=== PATIENT | female | born 1970 | race African-American/Black ===

== ENCOUNTER 2016-06-24 07:12 | Emergency (ER) | payer BC ==
[~2016-06-24] VITALS: Ht 162.6 cm; Wt 90.7 kg
[2016-06-24 07:23] VITALS: BP 156/92
--- NOTE | 2016-06-24 07:41 | PHYS DOC ---
Past Medical History Past Medical History: Hypertension Past Surgical History: Hysterectomy Alcohol Use: Occasionally Drug Use: None Adult General Chief Complaint Chief Complaint: HEADACHE HPI HPI Patient is a 45 year old female with history of hypertension who presents today with a 5 out of 10 sharp throbbing headache with chills cough that began 2 days ago, she states she's also had intermittent and neck pain going into her back. She states she believes she slept wrong because the pain is very musculoskeletal and yolk has when she sleeps in certain positions. Patient denies this being the worst headache in her life. Patient denies any nausea vomiting. Patient states she thought she had a crooked neck 2 days ago when the pain began. Patient denies any light sensitivity. Review of Systems Review of Systems Constitutional: chills [] Eyes: Denies change in visual acuity, redness, or eye pain [] HENT:sore throat [] Respiratory:cough Cardiovascular: No additional information not addressed in HPI [] GI: Denies abdominal pain, nausea, vomiting, bloody stools or diarrhea [] : Denies dysuria or hematuria [] Musculoskeletal: Denies back pain or joint pain [] Integument: Denies rash or skin lesions [] Neurologic: Denies headache, focal weakness or sensory changes [] Endocrine: Denies polyuria or polydipsia [] Current Medications Current Medications Current Medications Medications (Trade) Dose Ordered Sig/Raman Start Time Stop Time Status Last Admin Dose Admin Acetaminophen (Tylenol) 1,000 mg 1X ONCE 06/24/16 07:45 06/24/16 07:46 DC 06/24/16 07:59 1,000 MG Azithromycin (Zithromax) 1,000 mg 1X ONCE 06/24/16 09:45 06/24/16 09:46 Ceftriaxone Sodium (Rocephin Im) 250 mg 1X ONCE 06/24/16 09:45 06/24/16 09:46 Metronidazole (Flagyl) 2,000 mg 1X ONCE 06/24/16 09:45 06/24/16 09:46 Sodium Chloride (Iv Sodium Chloride 0.9% 1000ml Bag) 1,000 ml @ 1,000 mls/hr 1X ONCE 06/24/16 07:45 06/24/16 08:44 DC 06/24/16 08:00 1,000 MLS/HR Allergies Allergies Allergies Coded Allergies Type Severity Reaction Last Updated Verified No Known Drug Allergies 06/24/16 No Physical Exam Physical Exam Constitutional: Well developed, well nourished, no acute distress, non-toxic appearance. [] HENT: Normocephalic, atraumatic, bilateral external ears normal, oropharynx moist, no oral exudates, nose normal. [] Eyes: PERRLA, EOMI, conjunctiva normal, no discharge. [] Neck: Normal range of motion, no tenderness, supple, no stridor. Negative Kernig sign, negative Brudzinski sign [] Cardiovascular:Heart rate regular rhythm, no murmur [] Lungs & Thorax: Bilateral breath sounds clear to auscultation [] Abdomen: Bowel sounds normal, soft, no tenderness, no masses, no pulsatile masses. [] Skin: Warm, dry, no erythema, no rash. [] Back: No tenderness, no CVA tenderness. [] Extremities: No tenderness, no cyanosis, no clubbing, ROM intact, no edema. [] Neurologic: Alert and oriented X 3, normal motor function, normal sensory function, no focal deficits noted. [] Psychologic: Affect normal, judgement normal, mood normal. [] Current Patient Data Vital Signs Vital Signs Date Time Temp Pulse Resp B/P Pulse Ox O2 Delivery O2 Flow Rate FiO2 06/24/16 07:23 101.1 100 20 156/92 96 Room Air 101.1 Lab Values Laboratory Tests Test 06/24/16 07:40 06/24/16 07:50 Influenza Type A Antigen Negative (NEGATIVE) Influenza Type B Antigen Negative (NEGATIVE) White Blood Count 5.0x10^3/uL (4.0-11.0) Red Blood Count 4.91x10^6/uL (3.50-5.40) Hemoglobin 12.7g/dL (12.0-15.5) Hematocrit 39.2% (36.0-47.0) Mean Corpuscular Volume 80fL (79-100) Mean Corpuscular Hemoglobin 26pg (25-35) Mean Corpuscular Hemoglobin Concent 33g/dL (31-37) Red Cell Distribution Width 14.6% (11.5-14.5) H Platelet Count 262x10^3/uL (140-400) Neutrophils (%) (Auto) 53% (31-73) Lymphocytes (%) (Auto) 32% (24-48) Monocytes (%) (Auto) 12% (0-9) H Eosinophils (%) (Auto) 2% (0-3) Basophils (%) (Auto) 1% (0-3) Neutrophils # (Auto) 2.7x10^3uL (1.8-7.7) Lymphocytes # (Auto) 1.6x10^3/uL (1.0-4.8) Monocytes # (Auto) 0.6x10^3/uL (0.0-1.1) Eosinophils # (Auto) 0.1x10^3/uL (0.0-0.7) Basophils # (Auto) 0.0x10^3/uL (0.0-0.2) Urine Collection Type Unknown Urine Color Yellow Urine Clarity Hazy Urine pH 6.0 Urine Specific Black 1.025 Urine Protein 30mg/dL (NEG-TRACE) Urine Glucose (UA) Negativemg/dL (NEG) Urine Ketones (Stick) Negativemg/dL (NEG) Urine Blood Trace (NEG) Urine Nitrite Negative (NEG) Urine Bilirubin Negative (NEG) Urine Urobilinogen Dipstick 1.0mg/dL (0.2 mg/dL) Urine Leukocyte Esterase Small (NEG) Urine RBC 1-2/HPF (0-2) Urine WBC 11-20/HPF (0-4) Urine Squamous Epithelial Cells Many/LPF Urine Bacteria Many/HPF (0-FEW) Urine Mucus Marked/LPF Urine Trichomonas Present Sodium Level 135mmol/L (136-145) L Potassium Level 3.3mmol/L (3.5-5.1) L Chloride Level 103mmol/L (98-107) Carbon Dioxide Level 25mmol/L (21-32) Anion Gap 7 (6-14) Blood Urea Nitrogen 10mg/dL (7-20) Creatinine 0.8mg/dL (0.6-1.0) Estimated GFR (Cockcroft-Gault) 93.9 BUN/Creatinine Ratio 13 (6-20) Glucose Level 144mg/dL (70-99) H Calcium Level 9.1mg/dL (8.5-10.1) Total Bilirubin 0.8mg/dL (0.2-1.0) Aspartate Amino Transferase (AST) 46U/L (15-37) H Alanine Aminotransferase (ALT) 72U/L (14-59) H Alkaline Phosphatase 130U/L (46-116) H Total Protein 8.2g/dL (6.4-8.2) Albumin 3.6g/dL (3.4-5.0) Albumin/Globulin Ratio 0.8 (1.0-1.7) L Group A Streptococcus Rapid Negative (NEGATIVE) Laboratory Tests 06/24/16 07:50 Laboratory Tests 06/24/16 07:50 EKG EKG [] Radiology/Procedures Radiology/Procedures []PROCEDURE: CHEST AP ONLY Exam: AP portable chest. History: Fever for 2 days. Coughing. Comparison: None. Findings: The heart and mediastinal structures are within normal limits for size. Lungs are without infiltrate. No pneumothorax or pleural effusion is appreciated. Impression: 1. No acute cardiopulmonary process. DICTATED and SIGNED BY: MECCA HAMMOND MD DATE: 06/24/16 0757 CC: REGINA BAIG APRN ~ Course & Med Decision Making Course & Med Decision Making Pertinent Labs and Imaging studies reviewed. (See chart for details) This is a 45-year-old female patient who presents today with headache, coughing , chills, neck to mid back pain that began 2 days ago, patient's neck pain is very musculoskeletal, she states she believes she slept wrong. She is febrile in the ED with a temperature of 101, most of her symptoms upper respiratory infection related. Chest x-ray interpreted by radiologist is negative for any acute findings. CBC with normal WBC. CMP with AST of 46, ALT of 72, alkaline phosphate of 1:30, patient denies any abdominal pain. Denies any nausea vomiting. Patient's cough and congestion and headache are probably upper respiratory infection related. Discharged with Flomax Tylenol and ibuprofen. Urine analysis was positive for Trichomonas. Gave patient results. I recommended treatment. Patient was given Flagyl Rocephin and azithromycin in the ED. was present, recommended he check sent to be treated as well. Patient will follow up with primary care doctor in one week. Dragon Disclaimer Dragon Disclaimer This electronic medical record was generated, in whole or in part, using a voice recognition dictation system. Departure Departure Impression: Primary Impression: Fever Additional Impressions: Cough Trichomonas vaginitis Headache Musculoskeletal back pain Musculoskeletal neck pain Upper respiratory infection Disposition: 01 HOME, SELF-CARE Condition: STABLE Patient Instructions: Cough, Adult, Fever, General Headache Without Cause, Trichomoniasis, Upper Respiratory Infection, Adult Additional Instructions: You were seen with symptoms consistent with an upper respiratory infection including headache fever coughing. Take Tylenol every 4 hours and Motrin every 6 hours as needed for fever or pain. Come back to the ED at any point symptoms worsen. You tested positive for Trichomonas. This is an STD. Use protection at all times. Ensure all your partners get treated. Do not have sex for a week. Scripts Benzonatate (Tessalon Perle)100 Mg Capsule1 Cap PO TID #30 CAP Prov:REGINA BAIG [employer] 06/24/16 Problem Qualifiers Primary Impression: Fever Fever type: unspecified Qualified Code: R50.9 - Fever, unspecified Additional Impressions: Headache Headache type: unspecified Headache chronicity pattern: unspecified pattern Intractability: not intractable Qualified Code: R51 - Headache Upper respiratory infection URI type: unspecified URI Qualified Code: J06.9 - Acute upper respiratory infection, unspecified REGINA BAIG [employer] Jun 24, 2016 07:41
[2016-06-24] MEDS ORDERED: ACETAMINOPHEN 500 MG TABLET PO ONE (07:45)
[2016-06-24] MEDS ORDERED: IV NORMAL SALINE 1000ML BAG 1,000 ML IV ONE (07:45)
--- NOTE | 2016-06-24 08:00 | RAD ---
Exam: AP portable chest. History: Fever for 2 days. Coughing. Comparison: None. Findings: The heart and mediastinal structures are within normal limits for size. Lungs are without infiltrate. No pneumothorax or pleural effusion is appreciated. Impression: 1. No acute cardiopulmonary process.
[2016-06-24 08:11] LABS: OBC FLU VALID
[2016-06-24 08:12] LABS: BASO % 1 % (0-3); EOS % 2 % (0-3); HEMATOCRIT 39.2 % (36.0-47.0); HEMOGLOBIN 12.7 g/dL (12.0-15.5); LYMPH # 1.6 x10^3/uL (1.0-4.8); LYMPH % 32 % (24-48); MEAN CORPUSCULAR HEMOGLOBIN 26 pg (25-35); MEAN CORPUSCULAR HGB CONC 33 g/dL (31-37); MEAN CORPUSCULAR VOLUME 80 fL (79-100); MONO % 12 % (0-9); NEUT % 53 % (31-73); PLATELET COUNT 262 x10^3/uL (140-400); RED BLOOD COUNT 4.91 x10^6/uL (3.50-5.40); RED CELL DISTRIBUTION WIDTH 14.6 % (11.5-14.5)
[2016-06-24 08:14] LABS: NEGATIVE OBC STREP NEG; POSITIVE OBC STREP POS
[2016-06-24 08:19] LABS: CALCIUM 9.1 mg/dL (8.5-10.1); CREATININE 0.8 mg/dL (0.6-1.0); GFR 93.9; POTASSIUM 3.3 mmol/L (3.5-5.1)
[2016-06-24 08:25] LABS: ALBUMIN 3.6 g/dL (3.4-5.0); ALBUMIN/GLOBULIN RATIO 0.8 (1.0-1.7); TOTAL BILIRUBIN 0.8 mg/dL (0.2-1.0); TOTAL PROTEIN 8.2 g/dL (6.4-8.2)
[2016-06-24 08:54] LABS: BILIRUBIN,URINE NEGATIVE (NEG); GLUCOSE,URINE NEGATIVE (NEG)
[2016-06-24 08:55] LABS: NITRITE,URINE NEGATIVE (NEG); PROTEIN,URINE 30 mg/dL (NEG-TRACE); SQUAMOUS EPITHELIAL CELL,UR MANY /LPF
[2016-06-24 08:56] LABS: TRICHOMONAS,URINE PRESENT
[2016-06-24 08:57] LABS: BACTERIA,URINE MANY /HPF (0-FEW)
[2016-06-24] MEDS ORDERED: METRONIDAZOLE 500 MG TABLET. PO ONE (09:45)
[2016-06-24] MEDS ORDERED: cefTRIAXone IM 250 MG VIAL IM ONE (09:45)
[2016-06-24] MEDS ORDERED: AZITHROMYCIN 250 MG TABLET. PO ONE (09:45)
[2016-06-24] MEDS ORDERED: BENZ100C PO (09:46)
== END 2016-06-24 10:41 | disposition home or self-care (01) ==
LOC: ER 07:12
DX: J06.9 Acute upper respiratory infection, unspecified (principal); R51 Headache; M54.2 Cervicalgia; M54.6 Pain in thoracic spine; A59.01 Trichomonal vulvovaginitis; I10 Essential (primary) hypertension; Z90.710 Acquired absence of both cervix and uterus
CPT/HCPCS: 36415; 71010; 80053; 81001; 85027; 87040; 87070; 87804; 87880; 96360; 96372; 99285; J0696; J7030; Q0144

== ENCOUNTER 2018-11-03 07:26 | Day surgery (SDC) | payer BC ==
--- NOTE | 2018-11-03 06:50 | HP ---
ADMIT DATE: HISTORY OF PRESENT ILLNESS: I am asked to see this patient by Dr. Cevallos, her primary care physician because of a mass in the left upper outer quadrant of the left breast and/or axillary area and also multiple cysts and masses in either breasts. She has had a mammogram, which shows a cyst and also sonogram, which shows the mass in the left breast in the tail of Garcia. She does not have pain from the mass and states that it may be getting larger. She has much relief from this mass when she removes her bra. PAST MEDICAL HISTORY: Shows normal childhood diseases. She does have hypertension for which she takes medication. She has had a hysterectomy for which I do not know how many years ago and also has had some type of surgery on the left arm where she has some what looks like keloid scars from an insect bite. ALLERGIES: The patient as stated before does not have any allergies to her knowledge and otherwise has no other illnesses. FAMILY HISTORY: Positive and that her dad had breast cancer. Family history shows no other breast pathology. The patient has 2 children. SOCIAL HISTORY: Does not smoke or use illicit drugs and only drinks socially and not enough to be inebriated. PHYSICAL EXAMINATION: GENERAL: Shows an alert female in no acute distress. HEAD, EARS, EYES, NOSE AND THROAT: Grossly normal. CHEST: Clear bilaterally to auscultation. HEART: Had no murmurs, heaves, friction rubs or thrills and we estimated the rate to be 70 beats per minute and it was regular. BREASTS: Examination of the right breast was basically negative and right axillary area was negative. The left breast was negative except for mass in the upper outer quadrant of the right breast, which was almost over the lateral portion of the pectoralis major muscle. It was about 4-6 cm in size, easily palpable, somewhat movable and nontender. ABDOMEN: Grossly normal with a Pfannenstiel incision, which was with good cosmetic result. PELVIC: Not done. EXTREMITIES: Grossly normal. IMPRESSION: 1. Hypertension. 2. Mass upper outer quadrant, left breast. 3. Cyst of the breast, most likely fibrocystic breast disease. ISIS JAMES MD DR: YANDEL/charles JOB#: [id number] / [id number]
[~2018-11-03 07:26] MED LIST: AMLO10TA8 PO; BENZ100C PO; CLIN300C8 PO; HYDR-3164 PO; IBUP200T44 PO; IV RINGERS,LACTATED 1000ML 1,000 ML IV SCH; LISI1TAB19 PO
[2018-11-03] MEDS ORDERED: LIDOCAINE 1% PF 2 ML VIAL. ID PRN (07:30)
[2018-11-03] MEDS ORDERED: HYDROmorphone 2 MG/ML VIAL IV PRN (07:30)
[2018-11-03] MEDS ORDERED: ONDANSETRON PF 4 MG/2 ML VIAL. IV PRN (07:30)
[2018-11-03] MEDS ORDERED: fentaNYL PF VIAL 100 MCG/2 ML VIAL IV PRN ×2 (07:30)
[2018-11-03] MEDS ORDERED: PROCHLORPERAZINE 10 MG/2 ML VIAL. IV PRN (07:30)
[2018-11-03] MEDS ORDERED: MORPHINE SULFATE 2 MG/ML VIAL. IV PRN (07:30)
[2018-11-03] MEDS ORDERED: LIDOCAINE 2% PF 5 ML VIAL. ONE (08:32)
[2018-11-03] MEDS ORDERED: fentaNYL PF VIAL 100 MCG/2 ML VIAL ONE (08:32)
[2018-11-03] MEDS ORDERED: PROPOFOL 20 ML IV ONE (08:32)
--- NOTE | 2018-11-03 09:19 | PDOC ---
SURGICAL PROGRESS NOTE Subjective No change i dictated H&P. Vital Signs Vital Signs Date Time Temp Pulse Resp B/P (MAP) Pulse Ox O2 Delivery O2 Flow Rate FiO2 11/03/18 08:00 98.3 92 20 99 98.3 11/03/18 07:48 147/89 Room Air ISIS JAMES MD Nov 03, 2018 09:19
--- NOTE | 2018-11-03 09:21 | PDOC ---
SURGICAL PROGRESS NOTE Subjective Op Note: Surgeon.................................................Benjamin Pre op diag.............................................Mass left breast/axilla Post op diag...........................................same Anesthesia.............................................general Procedure...............................................exc mass left breast/axilla Drains....................................................none Fluids....................................................see anesthesia sheet Blood loss..............................................15cc Condition................................................satisfactory Vital Signs Vital Signs Date Time Temp Pulse Resp B/P (MAP) Pulse Ox O2 Delivery O2 Flow Rate FiO2 11/03/18 08:00 98.3 92 20 99 98.3 11/03/18 07:48 147/89 Room Air ISIS JAMES MD Nov 03, 2018 09:21
[2018-11-03] MEDS ORDERED: FAMOTIDINE 20 MG/2 ML VIAL ONE (09:29)
[2018-11-03] MEDS ORDERED: DEXAMETHASONE SOD PHOS 4 MG/ML VIAL ONE (09:29)
[2018-11-03] MEDS ORDERED: SEVOFLURANE 31 TO 60 MINUTES. IH ONE (09:29)
[2018-11-03] MEDS ORDERED: ONDANSETRON PF 4 MG/2 ML VIAL. ONE (09:29)
[2018-11-03 09:54] LABS: CALCIUM 9.3 mg/dL (8.5-10.1); CREATININE 0.7 mg/dL (0.6-1.0); GFR 108.1; POTASSIUM 3.3 mmol/L (3.5-5.1)
[2018-11-03 09:56] LABS: BASO % 1 % (0-3); EOS # 0.2 x10^3/uL (0.0-0.7); EOS % 6 % (0-3); HEMATOCRIT 38.6 % (36.0-47.0); HEMOGLOBIN 12.9 g/dL (12.0-15.5); LYMPH # 1.3 x10^3/uL (1.0-4.8); LYMPH % 34 % (24-48); MEAN CORPUSCULAR HEMOGLOBIN 27 pg (25-35); MEAN CORPUSCULAR HGB CONC 33 g/dL (31-37); MEAN CORPUSCULAR VOLUME 81 fL (79-100); MONO # 0.4 x10^3/uL (0.0-1.1); MONO % 10 % (0-9); NEUT # 1.8 x10^3/uL (1.8-7.7); NEUT % 49 % (31-73); PLATELET COUNT 202 x10^3/uL (140-400); RED BLOOD COUNT 4.75 x10^6/uL (3.50-5.40); RED CELL DISTRIBUTION WIDTH 13.7 % (11.5-14.5); WHITE BLOOD COUNT 3.7 x10^3/uL (4.0-11.0)
[2018-11-03 10:00] LABS: ALBUMIN 3.7 g/dL (3.4-5.0); ALBUMIN/GLOBULIN RATIO 0.9 (1.0-1.7); TOTAL BILIRUBIN 0.6 mg/dL (0.2-1.0)
--- NOTE | 2018-11-03 10:57 | DISCH ---
DISCHARGE INSTRUCTIONS Condition on Discharge Condition on Discharge: Stable Activity After Discharge Activity Instructions for Disc: Activity as tolerated, Avoid exertion Exercise Instruction after Dis: Progress as tolerated Weight Bearing Status after Di: As tolerated Diet after Discharge Diet after Discharge: No Added Salt, Regular Diet Texture: Regular Liquid Texture: Thin Liquid Wound Incision Care Wound/Incision Care: Keep wound elevated, Change dressing, Other, see below (Kk) Other wound/incision instructi: Keep wound dry and clean with H2O2. Do not raise arm over head Wound Care Equipment: Dressings Contacting the DRSammy after DC Call your doctor for: Follow-Up Follow up with: call and make appointment to see me in 2 weeks ISIS JAMES MD Nov 03, 2018 10:57
[2018-11-03] MEDS ORDERED: HYDR-2761 PO (11:15)
[2018-11-03] MEDS ORDERED: HYDROcodone/APAP 5/325MG 1 TAB TABLET PO ONE (11:30)
[2018-11-03 11:50] VITALS: BP 133/83
--- NOTE | 2018-11-05 10:13 | OP ---
DATE OF SURGERY: SURGEON: Rebel James MD PREOPERATIVE DIAGNOSIS: Large tumor, upper outer quadrant, left breast/left axilla. POSTOPERATIVE DIAGNOSIS: Large tumor, upper outer quadrant, left breast/left axilla. ANESTHESIA: General. PROCEDURE: Excision, large tumor, left axilla. TECHNIQUE: Under general anesthesia, the patient was properly prepped and draped in routine fashion. This mass, being about 7-8 inches in length, was seen and palpated in the left axilla. It was soft in nature, increasing in size, and she stated it causes her some pain. As such, the incision was made following the skin lines in the axilla, carried over to the anterior portion of the breast. We carried this down through the skin with a 15 blade. We then went through the subcutaneous with Metzenbaum scissors down to the mass, which was yellowish in color and quite extensive. It was difficult to tell if it extended from the tail of Garcia and/or to the axilla or if it originated in the axilla, it was impossible to tell. At any rate, we slowly used finger dissection and Metzenbaum scissors to slowly divide it from the surrounding tissues. It was quite extensive and large, being about 8-9 inches in length. I guess, that would be diameter also. We slowly got around, we got a finger under it, we were able to pull it down and then divided some of the attachments. On 1 or 2 occasions, we divided these after clamping the vessels going to the mass with clamps and divided it and tied this with 2-0 silk. We slowly mobilized the mass using finger dissection mostly, but also sharp dissection, and we were able to deliver the mass and excised it from the patient. Luckily, there was not much bleeding and the mass was sent to pathology in formalin. The area was identified. There was actually no further bleeding. We did not get close to any of the nerves and we did see the pectoralis major muscle lateral border and the tumor extended from that area to the axilla. We then proceeded to close the wound. We decided not to put drains in and we used a 3-0 Vicryl for the deeper structures to approximate this and then 4-0 for the most superficial structures. The skin was then closed using a subcuticular 5-0 Vicryl. A sterile dressing was applied and the procedure was terminated. Blood loss was probably about 20-25 mL. Fluids given can be obtained from the anesthesia sheet. No drains were used. Condition of the patient was satisfactory as she has returned to the recovery room. REBEL JAMES MD DR: YANDEL/charles JOB#: [id number] / [id number]
--- NOTE | 2018-11-07 18:06 | PATHOLOGY ---
[facility] Accession Number: [id number] . 01 Material submitted: . PART A: lymph node - PROMINENT LYMPH NODE LEFT LOWER AXILLA. Modifiers: left, lower, axilla PART B: axillary tail of breast - LEFT AXILLARY MASS. Modifiers: left . 01 Clinical history: . Left breast mass. . 02 Diagnosis: A. Segment of fibroadipose tissue and lymph node, lower axilla lymph node: - Reactive lymphoid hyperplasia, nonspecific. . B. Segment of fibroadipose tissue and lymph nodes, left axillary mass: - Lipoma. - Six lymph nodes showing reactive lymphoid hyperplasia, nonspecific. (JPM:katya; 11/07/2018) S 11/07/2018 1046 Local . 02 Comment: Sections of the prominent left lower axilla lymph node (A) reveal lymph node and surrounding fibroadipose tissue. There is preservation of the basic bjorn architecture. There is an occasional lymphoid follicle within the cortex containing a germinal center. There are more prominent areas of paracortical expansion composed predominantly of small lymphocytes with focally admixed histiocytes containing yellow brown granular pigmented material. There is sinus histiocytosis. 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 . Sections of the left axillary mass reveal a mass composed of mature adipocytes consistent with lipoma, and six lymph nodes. These lymph nodes show preservation of the basic bjorn architecture. The lymph nodes show variable numbers of lymphoid follicles within the cortex which contain reactive germinal centers. There are foci of paracortical expansion which again are composed of small lymphocytes with focally admixed histiocytes containing yellow brown granular pigmented material. There is sinus histiocytosis. 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 The lymph nodes show no evidence of metastatic neoplasm or a primary lymphoproliferative disorder. The case is also examined by Dr. Addison, who concurs with the diagnoses. (JPM:katya; 11/07/2018) . 02 Electronically signed: . Quincy Campbell MD, Pathologist NPI- [id number] . 01 Gross description: . A. Received in formalin labeled "Amanda Camp, prominent lymph node lower axilla" is a 3.0 x 1.4 x 1.4 cm pink-gaytan lymph node. The specimen is serially sectioned and submitted entirely in cassettes A1-A3. . B. Received in formalin labeled "Amanda Camp, left axillary mass" is a resection of yellow-gaytan soft tissue measuring 15.0 x 8.5 x 4.8 cm. Within the specimen is a prominent yellow-gaytan encapsulated soft tissue mass, measuring 10.5 x 7.5 x 4.6 cm. The external surface is inked black. Upon sectioning, the cut surface is yellow-gaytan and lobulated without hemorrhage or necrosis. The remaining fibroadipose tissue is palpated to reveal multiple pink-gaytan lymph nodes 1.6-3.3 cm in greatest dimension. [employer] sections of the specimen are submitted as follows: B1-B6 fraud representative sections of soft tissue mass, two sections in each cassette B7-B10 one lymph node in each cassette, serially sectioned B11-B12 one lymph node, serially sectioned and divided between two cassettes B13-B14 one lymph node, serially sectioned and divided between two cassettes [place] 11/05/2018[place] [facility] 11/07/2018 1039 Local . 02 Pathologist provided ICD-10: R59.9, D17.1 . 02 CPT . 732067, [id number] Specimen Comment: A courtesy copy of this report has been sent to Specimen Comment: [phone], . Specimen Comment: Report sent to / DR HUGHES Performed at: 01 [facility] [address], [place], [place] [id number] MD Jhonny Lucas MD Phone: [phone] Performed at: 02 [facility] [address], [place] [id number] MD Quincy Campbell MD Phone: [phone]
== END 2018-11-03 12:10 | disposition home or self-care (01) ==
LOC: SURG 07:26
PROVIDERS: ATTEND Specialist
DX: C85.84 Other specified types of non-Hodgkin lymphoma, lymph nodes of axilla and upper limb (principal); I10 Essential (primary) hypertension; Z79.01 Long term (current) use of anticoagulants; Z72.89 Other problems related to lifestyle; Z88.8 Allergy status to other drugs, medicaments and biological substances
CPT/HCPCS: 36415; 38525; 80053; 85025; 85610; 85730; A7015; J1100; J2001; J2405; J2704; J3010; J3490; 88304; 88305

== ENCOUNTER 2020-12-17 03:22 | Inpatient (IN) | payer BC ==
[~2020-12-17] VITALS: Ht 162.6 cm; Wt 88.5 kg
[~2020-12-17 03:22] MED LIST changes: +AMLO-187 PO; -AMLO10TA8 PO; +CLIN-94 PO; -CLIN300C8 PO; +HYDR-2761 PO; -IV RINGERS,LACTATED 1000ML 1,000 ML IV SCH; -LISI1TAB19 PO; +LISI1TAB37 PO
--- NOTE | 2020-12-17 04:48 | PHYS DOC ---
Past Medical History Past Medical History: Hypertension (XIAO FRIAS DO) Past Surgical History: Hysterectomy (XIAO FRIAS DO) Smoking Status: Never Smoker Alcohol Use: Occasionally Drug Use: None (XIAO FRIAS DO) General Adult EDM: Chief Complaint: ABDOMINAL PAIN HPI: HPI: 50 yo AA F PMH HTN, HLD, uterine fibroids with hysterectomy 5 years ago, presents to the ED with complaints of epigastric abdominal pain that woke patient up in the middle of the night described as " feels like I am being punched." No relief with Tums, Pepcid, selzter water and antacids. Reports she had 1 glass of wine and ate tacos for dinner. Is on a diuretic that requires her taking daily potassium. Reports she has had no history of Covid and has been vaccinated for Covid. Had a bowel movement approximately 30 minutes ago emergency department-denies any hard stools or watery stools. No history of CAD. Not a binge drinker. No h/o IVDU. PSH - hysterectomy. States "I also think I'm going through menopause. (XIAO FRIAS DO) Review of Systems: Review of Systems: Constitutional: Denies fever or chills. [] Eyes: Denies change in visual acuity. [] HENT: Denies nasal congestion or sore throat. [] Respiratory: Denies cough or shortness of breath. [] Cardiovascular: Denies syncope or hemoptysis or edema. [] GI: Denies nausea, vomiting, bloody stools or diarrhea. [] : Denies dysuria or vaginal bleeding Musculoskeletal: Denies flank pain or joint pain. [] Integument: Denies rash or diaphoresis Neurologic: Denies headache, focal weakness or sensory changes. [] Endocrine: Denies polyuria or polydipsia. [] Lymphatic: Denies swollen glands. [] Psychiatric: Denies depression or anxiety. [] (XIAO FRIAS DO) Heart Score: C/O Chest Pain: No Risk Factors: Risk Factors: DM, Current or recent (<one month) smoker, HTN, HLP, family history of CAD, obesity. Risk Scores: Score 0 - 3: 2.5% MACE over next 6 weeks - Discharge Home Score 4 - 6: 20.3% MACE over next 6 weeks - Admit for Clinical Observation Score 7 - 10: 72.7% MACE over next 6 weeks - Early Invasive Strategies (XIAO FRIAS DO) C/O Chest Pain: No (ELAINA ASHLEY MD) Allergies: Allergies: Allergies Coded Allergies Type Severity Reaction Last Updated Verified No Known Drug Allergies 11/03/18 No (XIAO FRIAS DO) Physical Exam: PE: Constitutional: Well developed, well nourished, no acute distress, non-toxic ap pearance, very hypertensive, systolic 185 and 101 95 and another HENT: Normocephalic, atraumatic, Eyes: EOMI, conjunctiva normal, no discharge. Neck: Normal range of motion, supple, Cardiovascular: S1/2 present, regular rhythm Lungs & Thorax: Speaking in full sentences, bilateral equal chest rise, no tachypnea or increased work of breathing Abdomen: soft, tender upper abdomen, worse over right upper quadrant with no Devi sign, no rigidity or guarding, no mcburnerys point tenderness Skin: Warm, dry, no erythema, no rash. [] Back: No tenderness, no CVA tenderness. [] Extremities: No tenderness, no cyanosis, Neurologic: Alert and oriented X 3, normal motor function, normal sensory function, no focal deficits noted. [] Psychologic: Affect normal, judgement normal, mood normal. [] (XIAO FRIAS DO) EKG: EKG: Sinus rhythm 80 bpm, no axis deviation, normal intervals, q wave T3,T wave inversion lead III, no ST elevation ST depression (XIAO FRIAS DO) Radiology/Procedures: Radiology/Procedures: []IMAGING REPORT Signed PATIENT: ERNIE KAUFFMAN ACCOUNT: [id number] : 1970 LOCATION: ER AGE: 50 SEX: F EXAM STATUS: REG ER ORD. PHYSICIAN: XIAO FRIAS DO REASON: epigastric pain PROCEDURE: PORTABLE CHEST 1V EXAMINATION: XR CHEST 1V CLINICAL HISTORY: Epigastric pain EXAM DATE/TIME: 12/17/2020 4:56 AM COMPARISON: 06/24/2016 FINDINGS: Lines, Tubes, and Devices: None. Cardiomediastinal Silhouette: Within normal limits. Lungs and Pleura: No evidence of focal airspace consolidation or pleural effusion. Pulmonary vasculature unremarkable. Bones and Soft Tissues: No acute osseous abnormality. IMPRESSION: No evidence of acute cardiopulmonary abnormality or significant interval change. Electronically signed by: Dario Cleary DO (12/17/2020 5:11 AM) RONALDOEDGAR DICTATED and SIGNED BY: DARIO CLEARY DO DATE: 12/17/20 [id number] (XIAO FRIAS DO) Radiology/Procedures: [facility] [address] [place] [address] IMAGING REPORT Signed PATIENT: ERNIE KAUFFMAN ACCOUNT: [id number] : 1970 LOCATION: ER AGE: 50 SEX: F EXAM STATUS: REG ER ORD. PHYSICIAN: XIAO FRIAS DO REASON: ruq pain PROCEDURE: ABDOMEN LTD EXAMINATION: RIGHT UPPER QUADRANT ULTRASOUND CLINICAL HISTORY: Right upper quadrant pain TECHNIQUE: Sonography of the right upper quadrant was performed. COMPARISON: None FINDINGS: Pancreas: Not visualized secondary to prominent overlying bowel gas. Liver: - Echotexture: Normal, homogeneous. - Echogenicity: Normal - Surface contour: Smooth - Lesions: None. Biliary: No intrahepatic biliary duct dilation. - CBD: 7 mm, upper limits of normal. - Gallbladder: Mildly dilated, measuring up to 12.2 x 3.9 cm - Contents: Cholelithiasis - Wall: Thickened - Other: Positive sonographic Devi's sign noted. Right Kidney: Measures 12.0 cm in length. No hydronephrosis or focal lesion. Ascites: None. Aorta/IVC: Partially visualized aorta and IVC unremarkable. IMPRESSION: Findings highly suspicious for acute cholecystitis. Nonvisualized pancreas. Electronically signed by: Dario Cleary DO (12/17/2020 6:40 AM) MOHIT DICTATED and SIGNED BY: DARIO CLEARY DO DATE: 12/17/20 [id number] (ELAINA ASHLEY MD) Course & Med Decision Making: Course & Med Decision Making Pertinent Labs and Imaging studies reviewed. (See chart for details) Concern for bilateral upper abdominal pain, worse in right upper quadrant, for the past 2 hours prior to ED arrival. Patient hemodynamically stable with unr emarkable labs and imaging-normal renal function. Is pending right upper quadrant ultrasound CTA chest abdomen pelvis to evaluate for dissection given elevated blood pressure. Due to shift change patient was signed out to oncoming physician Dr. Elliott for further medical evaluation disposition. (XIAO FRIAS DO) Course & Med Decision Making Accepted patient care at shift change. Patient has an acute cholecystitis with unremarkable labs. Will give antibiotics admit to her primary care provider, Dr. Schmitt. Dr. Magaña consulted for surgery (ELAINA ASHLEY MD) Dragon Disclaimer: Dragon Disclaimer: This electronic medical record was generated, in whole or in part, using a voice recognition dictation system. (XIAO FRIAS DO) Departure Departure Impression: Primary Impression: Upper abdominal pain Additional Impressions: Uncontrolled hypertension Acute cholecystitis Disposition: ADMITTED INPATIENT Condition: STABLE Referrals: OSWALDO SCHMITT MD (PCP) XIAO FRIAS DO Dec 17, 2020 04:48 ELAINA ASHLEY MD Dec 17, 2020 07:17
[2020-12-17 04:51] LABS: BILIRUBIN,URINE NEGATIVE (NEG); CLARITY,URINE CLEAR; COLOR,URINE YELLOW; NITRITE,URINE NEGATIVE (NEG); PROTEIN,URINE NEGATIVE (NEG-TRACE); UROBILINOGEN,URINE 0.2 mg/dL (0.2 mg/dL)
[2020-12-17 04:54] LABS: BASO % 1 % (0-3); EOS # 0.2 x10^3/uL (0.0-0.7); EOS % 3 % (0-3); HEMATOCRIT 37.4 % (36.0-47.0); HEMOGLOBIN 12.6 g/dL (12.0-15.5); LYMPH # 1.1 x10^3/uL (1.0-4.8); LYMPH % 23 % (24-48); MEAN CORPUSCULAR HEMOGLOBIN 27 pg (25-35); MEAN CORPUSCULAR HGB CONC 34 g/dL (31-37); MEAN CORPUSCULAR VOLUME 81 fL (79-100); MONO # 0.4 x10^3/uL (0.0-1.1); MONO % 8 % (0-9); NEUT # 3.2 x10^3/uL (1.8-7.7); NEUT % 65 % (31-73); PLATELET COUNT 208 x10^3/uL (140-400); RED CELL DISTRIBUTION WIDTH 13.7 % (11.5-14.5)
[2020-12-17 04:57] LABS: BARBITURATES NEG (NEG); BENZODIAZEPINES NEG (NEG); CANNABINOIDS NEG (NEG); COCAINE NEG (NEG); METHADONE NEG (NEG); OPIATES NEG (NEG); PHENCYCLIDINE NEG (NEG)
[2020-12-17 04:58] LABS: AMPHETAMINE/METHAMPHETAMINE NEG (NEG)
[2020-12-17] MEDS ORDERED: HYDROmorphone 2 MG/ML VIAL IVP ONE (05:00)
[2020-12-17 05:04] LABS: CREATININE 0.7 mg/dL (0.6-1.0); GFR 107.2; POTASSIUM 3.5 mmol/L (3.5-5.1)
[2020-12-17 05:06] LABS: BACTERIA,URINE 0 /HPF (0-FEW); RBC,URINE 0 /HPF (0-2); WBC,URINE 0 /HPF (0-4)
[2020-12-17 05:08] LABS: PREG TEST PT QUAL NEGATIVE (NEG)
[2020-12-17 05:09] LABS: ALBUMIN 3.7 g/dL (3.4-5.0); DIRECT BILIRUBIN 0.1 mg/dL (0.0-0.2); MAGNESIUM 1.9 mg/dL (1.8-2.4); TOTAL BILIRUBIN 0.7 mg/dL (0.2-1.0); TOTAL PROTEIN 8.1 g/dL (6.4-8.2)
--- NOTE | 2020-12-17 05:13 | RAD ---
EXAMINATION: XR CHEST 1V CLINICAL HISTORY: Epigastric pain EXAM DATE/TIME: 12/17/2020 4:56 AM COMPARISON: 06/24/2016 FINDINGS: Lines, Tubes, and Devices: None. Cardiomediastinal Silhouette: Within normal limits. Lungs and Pleura: No evidence of focal airspace consolidation or pleural effusion. Pulmonary vasculat ure unremarkable. Bones and Soft Tissues: No acute osseous abnormality. IMPRESSION: No evidence of acute cardiopulmonary abnormality or significant interval change. Electronically signed by: Dario Ho DO (12/17/2020 5:11 AM) MOHIT
--- NOTE | 2020-12-17 06:28 | EKG ---
[facility] [address] [place] [address] Test Date: 2020-12-17 Test Time: 04:37:59 Pat Name: ERNIE KAUFFMAN Department: Room: Gender: F [employer]r: [id number] : 1970 Requested By: IXAO FRIAS Order Number: [id number] Reading MD: Evelio Zuniga MD Measurements Intervals [place] Rate: 80 P: 36 GA: 154 QRS: 13 QRSD: 92 T: 19 QT: 392 QTc: 456 Interpretive Statements SINUS RHYTHM QRS(T) CONTOUR ABNORMALITY CONSISTENT WITH ANTEROSEPTAL INFARCT PROBABLY OLD Electronically Signed On 12-17-2020 17:30:17 CDT by Evelio Zuniga MD
--- NOTE | 2020-12-17 06:42 | RAD ---
EXAMINATION: RIGHT UPPER QUADRANT ULTRASOUND CLINICAL HISTORY: Right upper quadrant pain TECHNIQUE: Sonography of the right upper quadrant was performed. COMPARISON: None FINDINGS: Pancreas: Not visualized secondary to prominent overlying bowel gas. Liver: - Echotexture: Normal, homogeneous. - Echogenicity: Normal - Surface contour: Smooth - Lesions: None. Biliary: No intrahepatic biliary duct dilation. - CBD: 7 mm, upper limits of normal. - Gallbladder: Mildly dilated, measuring up to 12.2 x 3.9 cm - Contents: Cholelithiasis - Wall: Thickened - Other: Positive sonographic Devi's sign noted. Right Kidney: Measures 12.0 cm in length. No hydronephrosis or focal lesion. Ascites: None. Aorta/IVC: Partially visualized aorta and IVC unremarkable. IMPRESSION: Findings highly suspicious for acute cholecystitis. Nonvisualized pancreas. Electronically signed by: Dario Ho DO (12/17/2020 6:40 AM) [facility]
[2020-12-17] MEDS ORDERED: CONTRAST GIVEN. MC PRN (07:15)
[2020-12-17] MEDS ORDERED: IOHEXOL 350 MG/ML 100 ML VIAL. IV ONE (07:15)
[2020-12-17] MEDS ORDERED: cefTRIAXone IV Push 1 GM VIAL. IVP ONE (08:00)
--- NOTE | 2020-12-17 08:03 | RAD ---
CTA CHEST_ABDOMEN_AND PELVIS dated 12/17/2020 7:31 AM Indication:Reason: upper abd pain, r/o dissection / Spl. Instructions: omni 350 90ml / History: Comparison: No comparison is available. Technique: Initial noncontrast images were performed. This was followed by CTA chest, abdomen and pel vis using infusion of 90 mL Omnipaque 350. Multiplanar 3-D reformations were performed. One or more of the following individualized dose reduction techniques were utilized for this examinat ion: 1. Automated exposure control 2. Adjustment of the mA and/or kV according to patient size 3. Use of iterative reconstruction technique Findings: CTA chest: Noncontrast images show no evidence of intramural hematoma or mediastinal hemorrhage. CTA images show normal caliber aorta without dissection. There appears to be the standard branching p attern of the great vessels. Although this study was not performed to evaluate other structures, no significant abnormality is see n in the lungs. The central airways appear normal. There is no apparent adenopathy. There are some ri ght breast nodules. The largest is bilobed and located inferiorly. It measures about 2.[address] dimension. CTA abdomen and pelvis: The abdominal aorta is normal in caliber with minimal atherosclerosis. There is no dissection. Celiac and SMA are patent without significant narrowing. The ELTON is also patent. Bi lateral renal arteries show no stenosis. Iliac segments have mild plaque without significant stenosis . Although this study was not performed to evaluate other structures, there is probably mild fatty infi ltration of the liver. Small gallstones are seen in the gallbladder. The gallbladder appears distende d and could have early wall thickening, but there is no obvious adjacent edema. The spleen has a fair ly well-defined low-attenuation area measuring 1.4 cm. Both kidneys enhance with contrast. No mass or obstruction is seen. The adrenal glands are not enlarged. The pancreas appears normal. No adenopathy or soft tissue mass is seen. Images through the pelvis show evidence of previous hysterectomy. No mass, adenopathy or inflammatory process is seen. Bone windows show no apparent fracture in the spine. There is evidence of hemangioma at T7. IMPRESSION: No evidence of aortic dissection or other acute aortic pathology. Right breast nodules. If the patient has not had recent mammography, this should be considered. Cholelithiasis with some gallbladder distention. Cholecystitis is possible. Small splenic lesion, likely incidental and benign. Electronically signed by: Jay Wong Jr., MD (12/17/2020 8:01 AM) [id number]
[2020-12-17] MEDS ORDERED: MORPHINE SULFATE 4 MG/ML INJ. IVP PRN (09:15)
[2020-12-17] MEDS ORDERED: ONDANSETRON PF 4 MG/2 ML VIAL. IVP PRN (09:15)
[2020-12-17] MEDS: IV NORMAL SALINE 1000ML BAG 1,000 ML IV SCH ×2 (09:15→19:53)
[2020-12-17] MEDS ORDERED: ACETAMINOPHEN 325 MG TABLET. PO PRN (09:15)
[2020-12-17 10:48] VITALS: BP 143/92
[2020-12-17] MEDS ORDERED: ATOR10TA60 PO (11:08)
[2020-12-17] MEDS ORDERED: POTA8CAP19 PO (11:08)
[2020-12-17] MEDS: hydroCHLOROthiazide 12.5 MG CAPSULE PO SCH (13:00)
[2020-12-17] MEDS: LISINOPRIL 20 MG TABLET PO SCH (13:42)
[2020-12-17 15:00] VITALS: BP 151/79
--- NOTE | 2020-12-17 18:09 | PDOC ---
Provider Note Date of Service: DATE: 12/17/20 TIME: 18:09 Provider Note Pt seen .H&P dictated.#[id number]. Justifications for Admission Other Justification OSWALDO SCHMITT MD Dec 17, 2020 18:09
[2020-12-17 19:53] VITALS: BP 150/84
[2020-12-17] MEDS: ATORVASTATIN CALCIUM 10 MG TABLET. PO SCH (19:53)
--- NOTE | 2020-12-17 20:24 | PDOC2 ---
CONSULT Date of Consult Date of Consult DATE: 12/17/20 TIME: 20:16 Reason for Consult Reason for Consult: calculous cholecystitis Referring Physician Referring Physician: Dr. Conteh Identification/Chief Complaint Chief Complaint RUQ abd pain Source Source: Chart review, Patient History of Present Illness Reason for Visit: 50 yo F with c/o RUQ abd pain beginning early this AM. No previous episodes. [place] better since admission. Past Medical History Cardiovascular: HTN Past Surgical History Past Surgical History: Hysterectomy, Other Family History Family History: Other Social History No ALCOHOL: other Drugs: None Lives: Alone Current Problem List Problem List Problems Medical Problems: (1) Acute cholecystitis Status: Acute (2) Uncontrolled hypertension Status: Acute (3) Upper abdominal pain Status: Acute Current Medications Current Medications Current Medications Hydromorphone HCl (Dilaudid) 1 mg 1X ONCE IVP Last administered on 12/17/20at 05:06; Start 12/17/20 at 05:00; Stop 12/17/20 at 05:01; Status DC Iohexol (Omnipaque 350 Mg/ml) 95 ml 1X ONCE IV Last administered on 12/17/20at 07:30; Start 12/17/20 at 07:15; Stop 12/17/20 at 07:16; Status DC Info (CONTRAST GIVEN -- Rx MONITORING) 1 each PRN DAILY PRN MC SEE COMMENTS; Start 12/17/20 at 07:15; Stop 12/19/20 at 07:14 Ceftriaxone Sodium (Rocephin) 1 gm 1X ONCE IVP Last administered on 12/17/20at 08:34; Start 12/17/20 at 08:00; Stop 12/17/20 at 08:03; Status DC Metronidazole 100 ml @ 100 mls/hr 1X ONCE IV Last administered on 12/17/20at 08:34; Start 12/17/20 at 08:00; Stop 12/17/20 at 08:59; Status DC Ondansetron HCl (Zofran) 4 mg PRN Q8HRS PRN IVP NAUSEA/VOMITING; Start 12/17/20 at 09:15; Stop 12/18/20 at 09:14 Morphine Sulfate (Morphine Sulfate) 4 mg PRN Q2HR PRN IVP PAIN; Start 12/17/20 at 09:15; Stop 12/18/20 at 09:14 Sodium Chloride 1,000 ml @ 100 mls/hr Q10H IV Last administered on 12/17/20at 19:53; Start 12/17/20 at 09:15; Stop 12/18/20 at 09:14 Acetaminophen (Tylenol) 650 mg PRN Q4HRS PRN PO FEVER > 100.3'F; Start 12/17/20 at 09:15; Stop 12/18/20 at 09:14 Amlodipine Besylate (Norvasc) 10 mg DAILY PO Last administered on 12/17/20at 13:42; Start 12/17/20 at 13:00 Atorvastatin Calcium (Lipitor) 10 mg QHS PO Last administered on 12/17/20at 19:53; Start 12/17/20 at 21:00 Lisinopril (Prinivil) 20 mg DAILY PO Last administered on 12/17/20at 13:42; Start 12/17/20 at 13:00 Hydrochlorothiazide (Microzide) 12.5 mg DAILY PO ; Start 12/17/20 at 13:00 Active Scripts Active Reported Atorvastatin Calcium 10 Mg Tablet 1 Tab PO DAILY Potassium Chloride 8 Meq Capsule.er 1 Cap PO DAILY 30 Days Hydrocodone-Apap 5-325 (Hydrocodone Bit/Acetaminophen) 1 Tab Tablet 1 Tab PO PRN Q6HRS PRN Amlodipine Besylate 10 Mg Tablet 10 Mg PO DAILY Lisinopril-Hctz 20-12.5 Mg Tab (Lisinopril/Hydrochlorothiazide) 1 Each Tablet 1 Tab PO DAILY Allergies Allergies: Coded Allergies: No Known Drug Allergies (Unverified , 11/03/18) ROS Gastrointestinal: Yes Nausea, Yes Vomiting, Yes Abdominal Pain Physical Exam General: Alert, Oriented X3, Cooperative, mild distress HEENT: Atraumatic Lungs: Normal air movement Abdomen: Soft, Other (mild TTP RUQ) Extremities: No clubbing, No cyanosis Skin: No rashes, No breakdown Neuro: Normal speech, Sensation intact Psych/Mental Status: Mental status NL, Mood NL Vitals VITALS Vital Signs Date Time Temp Pulse Resp B/P (MAP) Pulse Ox O2 Delivery O2 Flow Rate FiO2 12/17/20 19:53 99.5 90 18 150/84 (106) 96 Room Air 99.5 Labs Labs Laboratory Tests Test 12/17/20 04:29 12/17/20 04:45 12/17/20 08:00 12/17/20 10:28 Urine Collection Type Unknown Urine Color Yellow Urine Clarity Clear Urine pH 6.0 (<5.0-8.0) Urine Specific Wheel[place] 1.020 (1.000-1.030) Urine Protein Negative mg/dL (NEG-TRACE) Urine Glucose (UA) Negative mg/dL (NEG) Urine Ketones (Stick) Negative mg/dL (NEG) Urine Blood Negative (NEG) Urine Nitrite Negative (NEG) Urine Bilirubin Negative (NEG) Urine Urobilinogen Dipstick 0.2 mg/dL (0.2 mg/dL) Urine Leukocyte Esterase Negative (NEG) Urine RBC 0 /HPF (0-2) Urine WBC 0 /HPF (0-4) Urine Squamous Epithelial Cells Few /LPF Urine Bacteria 0 /HPF (0-FEW) Urine Mucus Slight /LPF Urine Opiates Screen Neg (NEG) Urine Methadone Screen Neg (NEG) Urine Barbiturates Neg (NEG) Urine Phencyclidine Screen Neg (NEG) Urine Amphetamine/Methamphetamine Neg (NEG) Urine Benzodiazepines Screen Neg (NEG) Urine Cocaine Screen Neg (NEG) Urine Cannabinoids Screen Neg (NEG) Urine Ethyl Alcohol Neg (NEG) White Blood Count 5.0 x10^3/uL (4.0-11.0) Red Blood Count 4.60 x10^6/uL (3.50-5.40) Hemoglobin 12.6 g/dL (12.0-15.5) Hematocrit 37.4 % (36.0-47.0) Mean Corpuscular Volume 81 fL (79-100) Mean Corpuscular Hemoglobin 27 pg (25-35) Mean Corpuscular Hemoglobin Concent 34 g/dL (31-37) Red Cell Distribution Width 13.7 % (11.5-14.5) Platelet Count 208 x10^3/uL (140-400) Neutrophils (%) (Auto) 65 % (31-73) Lymphocytes (%) (Auto) 23 % (24-48) Monocytes (%) (Auto) 8 % (0-9) Eosinophils (%) (Auto) 3 % (0-3) Basophils (%) (Auto) 1 % (0-3) Neutrophils # (Auto) 3.2 x10^3/uL (1.8-7.7) Lymphocytes # (Auto) 1.1 x10^3/uL (1.0-4.8) Monocytes # (Auto) 0.4 x10^3/uL (0.0-1.1) Eosinophils # (Auto) 0.2 x10^3/uL (0.0-0.7) Basophils # (Auto) 0.0 x10^3/uL (0.0-0.2) Sodium Level 140 mmol/L (136-145) Potassium Level 3.5 mmol/L (3.5-5.1) Chloride Level 102 mmol/L (98-107) Carbon Dioxide Level 31 mmol/L (21-32) Anion Gap 7 (6-14) Blood Urea Nitrogen 12 mg/dL (7-20) Creatinine 0.7 mg/dL (0.6-1.0) Estimated GFR (Cockcroft-Gault) 107.2 Glucose Level 157 mg/dL (70-99) Calcium Level 9.0 mg/dL (8.5-10.1) Magnesium Level 1.9 mg/dL (1.8-2.4) Total Bilirubin 0.7 mg/dL (0.2-1.0) Direct Bilirubin 0.1 mg/dL (0.0-0.2) Aspartate Amino Transf (AST/SGOT) 20 U/L (15-37) Alanine Aminotransferase (ALT/SGPT) 42 U/L (14-59) Alkaline Phosphatase 140 U/L (46-116) Troponin I Quantitative < 0.017 ng/mL (0.000-0.055) < 0.017 ng/mL (0.000-0.055) CW-Amo-K-Type Natriuretic Peptide 19 pg/mL (0-124) Total Protein 8.1 g/dL (6.4-8.2) Albumin 3.7 g/dL (3.4-5.0) Lipase 104 U/L (73-393) Serum Test, Qualitative Negative (NEG) SARS-CoV-2 RNA (SAVAGE) Negative (Negative) SARS-CoV-2 Antigen (Rapid) Negative (NEGATIVE) Test 12/17/20 11:40 Troponin I Quantitative < 0.017 ng/mL (0.000-0.055) Laboratory Tests Test 12/17/20 04:29 12/17/20 04:45 12/17/20 08:00 12/17/20 10:28 Urine Collection Type Unknown Urine Color Yellow Urine Clarity Clear Urine pH 6.0 (<5.0-8.0) Urine Specific [place] 1.020 (1.000-1.030) Urine Protein Negative mg/dL (NEG-TRACE) Urine Glucose (UA) Negative mg/dL (NEG) Urine Ketones (Stick) Negative mg/dL (NEG) Urine Blood Negative (NEG) Urine Nitrite Negative (NEG) Urine Bilirubin Negative (NEG) Urine Urobilinogen Dipstick 0.2 mg/dL (0.2 mg/dL) Urine Leukocyte Esterase Negative (NEG) Urine RBC 0 /HPF (0-2) Urine WBC 0 /HPF (0-4) Urine Squamous Epithelial Cells Few /LPF Urine Bacteria 0 /HPF (0-FEW) Urine Mucus Slight /LPF Urine Opiates Screen Neg (NEG) Urine Methadone Screen Neg (NEG) Urine Barbiturates Neg (NEG) Urine Phencyclidine Screen Neg (NEG) Urine Amphetamine/Methamphetamine Neg (NEG) Urine Benzodiazepines Screen Neg (NEG) Urine Cocaine Screen Neg (NEG) Urine Cannabinoids Screen Neg (NEG) Urine Ethyl Alcohol Neg (NEG) White Blood Count 5.0 x10^3/uL (4.0-11.0) Red Blood Count 4.60 x10^6/uL (3.50-5.40) Hemoglobin 12.6 g/dL (12.0-15.5) Hematocrit 37.4 % (36.0-47.0) Mean Corpuscular Volume 81 fL (79-100) Mean Corpuscular Hemoglobin 27 pg (25-35) Mean Corpuscular Hemoglobin Concent 34 g/dL (31-37) Red Cell Distribution Width 13.7 % (11.5-14.5) Platelet Count 208 x10^3/uL (140-400) Neutrophils (%) (Auto) 65 % (31-73) Lymphocytes (%) (Auto) 23 % (24-48) Monocytes (%) (Auto) 8 % (0-9) Eosinophils (%) (Auto) 3 % (0-3) Basophils (%) (Auto) 1 % (0-3) Neutrophils # (Auto) 3.2 x10^3/uL (1.8-7.7) Lymphocytes # (Auto) 1.1 x10^3/uL (1.0-4.8) Monocytes # (Auto) 0.4 x10^3/uL (0.0-1.1) Eosinophils # (Auto) 0.2 x10^3/uL (0.0-0.7) Basophils # (Auto) 0.0 x10^3/uL (0.0-0.2) Sodium Level 140 mmol/L (136-145) Potassium Level 3.5 mmol/L (3.5-5.1) Chloride Level 102 mmol/L (98-107) Carbon Dioxide Level 31 mmol/L (21-32) Anion Gap 7 (6-14) Blood Urea Nitrogen 12 mg/dL (7-20) Creatinine 0.7 mg/dL (0.6-1.0) Estimated GFR (Cockcroft-Gault) 107.2 Glucose Level 157 mg/dL (70-99) Calcium Level 9.0 mg/dL (8.5-10.1) Magnesium Level 1.9 mg/dL (1.8-2.4) Total Bilirubin 0.7 mg/dL (0.2-1.0) Direct Bilirubin 0.1 mg/dL (0.0-0.2) Aspartate Amino Transf (AST/SGOT) 20 U/L (15-37) Alanine Aminotransferase (ALT/SGPT) 42 U/L (14-59) Alkaline Phosphatase 140 U/L (46-116) Troponin I Quantitative < 0.017 ng/mL (0.000-0.055) < 0.017 ng/mL (0.000-0.055) CY-Tof-B-Type Natriuretic Peptide 19 pg/mL (0-124) Total Protein 8.1 g/dL (6.4-8.2) Albumin 3.7 g/dL (3.4-5.0) Lipase 104 U/L (73-393) Serum Test, Qualitative Negative (NEG) SARS-CoV-2 RNA (SAVAGE) Negative (Negative) SARS-CoV-2 Antigen (Rapid) Negative (NEGATIVE) Test 12/17/20 11:40 Troponin I Quantitative < 0.017 ng/mL (0.000-0.055) Images Images CT and US c/w calculous cholecystitis Assessment/Plan Assessment/Plan Calculous cholecystitis TO OR in AM for laparoscopic versus open cholecystitis with cholangiogram. R/R/B/A d/w pt and pt's family. Risks, including, but not limited to: bleed ing, infection, damage to surrounding structures, risk of anesthesia, risk of open. They appear to understand, their questions are answered and they elect to proceed. Thanks for consult! JACQUI VELASCO MD Dec 17, 2020 20:24
--- NOTE | 2020-12-17 21:53 | HP ---
DATE OF SERVICE: 12/17/2020 ADMIT DATE: 12/17/2020 REASON FOR ADMISSION TO THE HOSPITAL: Abdominal pain secondary to gallstones and cholecystitis. HISTORY OF PRESENT ILLNESS: The patient is a 50-year-old female patient woke up this morning at 3:00 with severe epigastric pain and got progressively worse with nausea, vomiting, came to the emergency room. The patient had a CT scan as well as a sonogram which shows gallstones with cholecystitis. The patient was admitted to the hospital. The patient was seen by General Surgery, scheduled for surgery tomorrow morning. The patient is n.p.o. Pain is much better now and no fever. White count was normal. PAST MEDICAL HISTORY: Hypertension. PAST SURGICAL HISTORY: Hysterectomy, uterine fibroids. ALLERGIES: No known drug allergies. MEDICATIONS: At home, amlodipine 10 mg daily, atorvastatin 10 mg daily, lisinopril 20/12.5 daily, hydrocodone for pain. Potassium 8 mEq daily. PERSONAL HISTORY: Denies smoking, alcohol, drug abuse. FAMILY HISTORY: Unremarkable. REVIEW OF SYSTEMS: Denies any chest pain, shortness of breath, mostly epigastric pain and is using up now. PHYSICAL EXAMINATION: GENERAL: The patient is not in any distress. VITAL SIGNS: T-max 100, pulse 99, respirations 18, blood pressure 150/79, 96 on room air. HEENT: Head is atraumatic. Pupils equal. Oral cavity, no congestion. NECK: Supple. Thyroid not enlarged. JVD not elevated. CHEST: Symmetrical. CARDIOVASCULAR: S1, S2. LUNGS: Clear to auscultation. ABDOMEN: Epigastric tenderness to deep palpation. No rebound. Bowel sounds are present. No mass palpable. EXTERNAL GENITALIA: No Antunez. RECTUM: Deferred. EXTREMITIES: No calf tenderness, no edema. NEUROLOGIC: Moving extremities. No focal deficits noted. LABORATORY DATA: Shows a white count of 5, hemoglobin 12, platelets 208. Electrolytes show sodium 140, potassium 3.5, chloride 102, bicarbonate 31, BUN 12, creatinine 0.7, glucose 157. LFTs normal. Troponin is negative. Urine negative for infection. Toxicology negative, drug screen was negative. Serology negative for COVID. Chest x-ray was no acute abnormality. Gallbladder sonogram shows acute cholecystitis. CT of the abdomen and pelvis shows some evidence of cholelithiasis with some gallbladder distention. FINAL IMPRESSION: 1. Abdominal pain secondary to acute gallstones, possible early cholecystitis. 2. Hypertension. 3. Hyperlipidemia. PLAN: At this time, admit to hospital, hydrate with IV fluids, n.p.o. Surgery is consulted. Scheduled for surgery tomorrow. KUSH/DAVE/BANDAR DR: KUSH/charles TID: [id number]
[2020-12-17 23:30] VITALS: BP 113/74
[2020-12-18] VITALS (10 sets, daily range): BP systolic 114–144; BP diastolic 64–92
[2020-12-18 04:38] LABS: BASO % 1 % (0-3); EOS # 0.2 x10^3/uL (0.0-0.7); EOS % 4 % (0-3); HEMATOCRIT 34.6 % (36.0-47.0); HEMOGLOBIN 11.6 g/dL (12.0-15.5); LYMPH # 1.2 x10^3/uL (1.0-4.8); LYMPH % 32 % (24-48); MEAN CORPUSCULAR HEMOGLOBIN 27 pg (25-35); MEAN CORPUSCULAR HGB CONC 34 g/dL (31-37); MEAN CORPUSCULAR VOLUME 82 fL (79-100); MONO # 0.5 x10^3/uL (0.0-1.1); MONO % 12 % (0-9); NEUT # 1.9 x10^3/uL (1.8-7.7); NEUT % 51 % (31-73); PLATELET COUNT 181 x10^3/uL (140-400); RED BLOOD COUNT 4.24 x10^6/uL (3.50-5.40); RED CELL DISTRIBUTION WIDTH 13.7 % (11.5-14.5); WHITE BLOOD COUNT 3.7 x10^3/uL (4.0-11.0)
[2020-12-18 04:57] LABS: ALBUMIN/GLOBULIN RATIO 0.8 (1.0-1.7); CALCIUM 8.3 mg/dL (8.5-10.1); CREATININE 0.5 mg/dL (0.6-1.0); POTASSIUM 3.2 mmol/L (3.5-5.1); TOTAL BILIRUBIN 0.9 mg/dL (0.2-1.0); TOTAL PROTEIN 6.7 g/dL (6.4-8.2)
[2020-12-18] MEDS: IV NORMAL SALINE 1000ML BAG 1,000 ML IV SCH (07:22)
[2020-12-18] MEDS: LISINOPRIL 20 MG TABLET PO SCH (08:54)
[2020-12-18] MEDS ORDERED: POTASSIUM CHLORIDE 20MEQ 100 ML IV ONE (09:00)
[2020-12-18] MEDS: hydroCHLOROthiazide 12.5 MG CAPSULE PO SCH (09:00)
--- NOTE | 2020-12-18 09:02 | PDOC ---
PROGRESS NOTES Date of Service: DATE: 12/18/20 TIME: 09:00 Subjective Subjective feeling good, no pain today Objective Objective Vital Signs Date Time Temp Pulse Resp B/P (MAP) Pulse Ox O2 Delivery O2 Flow Rate FiO2 12/18/20 08:54 94 142/92 12/18/20 07:00 98.3 18 100 Room Air 98.3 Intake and Output 12/18/20 07:00 Intake Total 1100 ml Balance 1100 ml Intake Oral 0 ml IV Total 1100 ml # Voids 3 Physical Exam Abdomen: Soft, Other (mild TTP RUQ) Extremities: No clubbing, No cyanosis General: Alert, Oriented X3, Cooperative, mild distress HEENT: Atraumatic Lungs: Normal air movement Neuro: Normal speech, Sensation intact Psych/Mental Status: Mental status NL, Mood NL Skin: No rashes, No breakdown Diagnosis Problem List Problems Medical Problems: (1) Acute cholecystitis Status: Acute (2) Uncontrolled hypertension Status: Acute (3) Upper abdominal pain Status: Acute Assessment Assessment Problems Medical Problems: (1) Acute cholecystitis Status: Acute (2) Uncontrolled hypertension Status: Acute (3) Upper abdominal pain Status: Acute FINAL IMPRESSION: 1. Abdominal pain secondary to acute gallstones, possible early cholecystitis. 2. Hypertension. 3. Hyperlipidemia. PLAN: wbc normal potasium 3.2 low, replace with iv surgery Lap tiffany later today. At this time, admit to hospital, hydrate with IV fluids, n.p.o. Surgery is consulted. Scheduled for surgery tomorrow. Plan Plan of Care Problems Medical Problems: (1) Acute cholecystitis Status: Acute (2) Uncontrolled hypertension Status: Acute (3) Upper abdominal pain Status: Acute Comment Review of Relevant I have reviewed the following items abhinav (where applicable) has been applied. Labs Laboratory Tests Test 12/17/20 10:28 12/17/20 11:40 12/18/20 03:25 SARS-CoV-2 RNA (SAVAGE) Negative (Negative) SARS-CoV-2 Antigen (Rapid) Negative (NEGATIVE) Troponin I Quantitative < 0.017 ng/mL (0.000-0.055) White Blood Count 3.7 x10^3/uL (4.0-11.0) Red Blood Count 4.24 x10^6/uL (3.50-5.40) Hemoglobin 11.6 g/dL (12.0-15.5) Hematocrit 34.6 % (36.0-47.0) Mean Corpuscular Volume 82 fL (79-100) Mean Corpuscular Hemoglobin 27 pg (25-35) Mean Corpuscular Hemoglobin Concent 34 g/dL (31-37) Red Cell Distribution Width 13.7 % (11.5-14.5) Platelet Count 181 x10^3/uL (140-400) Neutrophils (%) (Auto) 51 % (31-73) Lymphocytes (%) (Auto) 32 % (24-48) Monocytes (%) (Auto) 12 % (0-9) Eosinophils (%) (Auto) 4 % (0-3) Basophils (%) (Auto) 1 % (0-3) Neutrophils # (Auto) 1.9 x10^3/uL (1.8-7.7) Lymphocytes # (Auto) 1.2 x10^3/uL (1.0-4.8) Monocytes # (Auto) 0.5 x10^3/uL (0.0-1.1) Eosinophils # (Auto) 0.2 x10^3/uL (0.0-0.7) Basophils # (Auto) 0.0 x10^3/uL (0.0-0.2) Sodium Level 142 mmol/L (136-145) Potassium Level 3.2 mmol/L (3.5-5.1) Chloride Level 106 mmol/L (98-107) Carbon Dioxide Level 29 mmol/L (21-32) Anion Gap 7 (6-14) Blood Urea Nitrogen 9 mg/dL (7-20) Creatinine 0.5 mg/dL (0.6-1.0) Estimated GFR (Cockcroft-Gault) 158.0 BUN/Creatinine Ratio 18 (6-20) Glucose Level 113 mg/dL (70-99) Calcium Level 8.3 mg/dL (8.5-10.1) Total Bilirubin 0.9 mg/dL (0.2-1.0) Aspartate Amino Transf (AST/SGOT) 18 U/L (15-37) Alanine Aminotransferase (ALT/SGPT) 29 U/L (14-59) Alkaline Phosphatase 104 U/L (46-116) Total Protein 6.7 g/dL (6.4-8.2) Albumin 3.0 g/dL (3.4-5.0) Albumin/Globulin Ratio 0.8 (1.0-1.7) Medications Current Medications Acetaminophen (Tylenol) 650 mg PRN Q4HRS PRN PO FEVER > 100.3'F; Start 12/17/20 at 09:15; Stop 12/18/20 at 09:14 Amlodipine Besylate (Norvasc) 10 mg DAILY PO Last administered on 12/18/20at 08:53; Start 12/17/20 at 13:00 Atorvastatin Calcium (Lipitor) 10 mg QHS PO Last administered on 12/17/20at 19:53; Start 12/17/20 at 21:00 Heparin Sodium (Porcine) 1000 unit/Sodium Chloride 1,001 ml @ 1,001 mls/hr 1X ONCE IRR ; Start 12/18/20 at 13:00; Stop 12/18/20 at 13:59 Hydrochlorothiazide (Microzide) 12.5 mg DAILY PO ; Start 12/17/20 at 13:00 Lisinopril (Prinivil) 20 mg DAILY PO Last administered on 12/18/20at 08:54; Start 12/17/20 at 13:00 Morphine Sulfate (Morphine Sulfate) 4 mg PRN Q2HR PRN IVP PAIN; Start 12/17/20 at 09:15; Stop 12/18/20 at 09:14 Ondansetron HCl (Zofran) 4 mg PRN Q8HRS PRN IVP NAUSEA/VOMITING; Start 12/17/20 at 09:15; Stop 12/18/20 at 09:14 Potassium Chloride/Water 100 ml @ 50 mls/hr 1X ONCE IV Last administered on 12/18/20at 08:55; Start 12/18/20 at 09:00; Stop 12/18/20 at 10:59 Sodium Chloride 1,000 ml @ 100 mls/hr Q10H IV Last administered on 12/18/20at 07:22; Start 12/17/20 at 09:15; Stop 12/18/20 at 09:14 Vitals/I & O Vital Sign - Last 24 Hours 12/17/20 12/17/20 12/17/20 12/17/20 09:18 09:48 10:18 10:48 Temp 98.4 98.4 Pulse 82 86 88 86 Resp 18 B/P (MAP) 151/79 (103) 164/81 (108) 174/83 (113) 143/92 (109) Pulse Ox 98 96 98 98 O2 Delivery Room Air Room Air Room Air Room Air 12/17/20 12/17/20 12/17/20 12/17/20 11:00 13:42 13:42 15:00 Temp 100.1 100.1 Pulse 86 86 99 Resp 18 B/P (MAP) 143/92 143/92 151/79 (103) Pulse Ox 95 O2 Delivery Room Air Room Air 12/17/20 12/17/20 12/17/20 12/17/20 17:34 19:53 20:00 23:30 Temp 98.5 99.5 98.6 98.5 99.5 98.6 Pulse 90 88 Resp 18 20 B/P (MAP) 150/84 (106) 113/74 (87) Pulse Ox 96 99 O2 Delivery Room Air Room Air Room Air 12/18/20 12/18/20 12/18/20 12/18/20 03:29 07:00 08:53 08:54 Temp 98.3 98.3 98.3 98.3 Pulse 82 94 94 94 Resp 20 18 B/P (MAP) 138/72 (94) 142/92 (109) 142/92 142/92 Pulse Ox 98 100 O2 Delivery Room Air Room Air Intake and Output 12/17/20 12/17/20 12/18/20 15:00 23:00 07:00 Intake Total 100 ml 1000 ml 0 ml Balance 100 ml 1000 ml 0 ml Justifications for Admission Other Justification OSWALDO SCHMITT MD Dec 18, 2020 09:02
--- NOTE | 2020-12-18 10:40 | NUR ---
SW following. Discussed with RN, pt from home with family, room air, NPO, COVID-19 negative. Pt having surgery between [id number]. RN advised no SW needs at this time. SW will continue to follow.
[2020-12-18] MEDS ORDERED: HEPARIN 1,000 UNIT in IV NORMAL SALINE 1,000 ML for SURG PERIOP IRR ONE (13:00)
[2020-12-18] MEDS ORDERED: ROCURONIUM 50 MG/5 ML VIAL. ONE ×2 (13:32→14:48)
[2020-12-18] MEDS ORDERED: fentaNYL PF VIAL 250 MCG/5 ML VIAL ONE (13:34)
[2020-12-18] MEDS ORDERED: LIDOCAINE 2% PF 5 ML VIAL. ONE (14:49)
[2020-12-18] MEDS ORDERED: PROPOFOL 10 MG/ML (20ML) VIAL. IV ONE (14:49)
[2020-12-18] MEDS ORDERED: SURGICEL HEMOSTAT 2X14 EACH. ONE (14:51)
[2020-12-18] MEDS ORDERED: BUPIVACAINE-EPI 0.5% 30 ML VIAL KIT. ONE (14:51)
[2020-12-18] MEDS ORDERED: IOHEXOL 300 MG/ML 50 ML VIAL. ONE (14:51)
[2020-12-18] MEDS ORDERED: BISACODYL 10 MG SUPP.RECT. ONE (14:52)
--- NOTE | 2020-12-18 15:38 | PDOC ---
SURGICAL PROGRESS NOTE DATE: 12/18/20 TIME: 15:36 Subjective Pre-Op Note 50 yo F with cholecystitis. TO OR for laparoscopic versus open cholecystectomy with cholangiogram. R/R/B/A d/w pt and pt's SO. Risks, including, but not limited to: bleeding, infection, damage to surrounding structures, risk of anesthesia, risk of open. They appear to understand, their questions are answered and they elect to proceed. Vital Signs Vital Signs Date Time Temp Pulse Resp B/P (MAP) Pulse Ox O2 Delivery O2 Flow Rate FiO2 12/18/20 14:48 98.6 97 20 166/88 99 Room Air 98.6 I&O Intake and Output 12/18/20 07:00 Intake Total 1100 ml Balance 1100 ml Intake Oral 0 ml IV Total 1100 ml # Voids 3 Labs Laboratory Tests Test 12/17/20 04:29 12/17/20 04:45 12/17/20 08:00 12/17/20 10:28 Urine Collection Type Unknown Urine Color Yellow Urine Clarity Clear Urine pH 6.0 (<5.0-8.0) Urine Specific [place] 1.020 (1.000-1.030) Urine Protein Negative mg/dL (NEG-TRACE) Urine Glucose (UA) Negative mg/dL (NEG) Urine Ketones (Stick) Negative mg/dL (NEG) Urine Blood Negative (NEG) Urine Nitrite Negative (NEG) Urine Bilirubin Negative (NEG) Urine Urobilinogen Dipstick 0.2 mg/dL (0.2 mg/dL) Urine Leukocyte Esterase Negative (NEG) Urine RBC 0 /HPF (0-2) Urine WBC 0 /HPF (0-4) Urine Squamous Epithelial Cells Few /LPF Urine Bacteria 0 /HPF (0-FEW) Urine Mucus Slight /LPF Urine Opiates Screen Neg (NEG) Urine Methadone Screen Neg (NEG) Urine Barbiturates Neg (NEG) Urine Phencyclidine Screen Neg (NEG) Urine Amphetamine/Methamphetamine Neg (NEG) Urine Benzodiazepines Screen Neg (NEG) Urine Cocaine Screen Neg (NEG) Urine Cannabinoids Screen Neg (NEG) Urine Ethyl Alcohol Neg (NEG) White Blood Count 5.0 x10^3/uL (4.0-11.0) Red Blood Count 4.60 x10^6/uL (3.50-5.40) Hemoglobin 12.6 g/dL (12.0-15.5) Hematocrit 37.4 % (36.0-47.0) Mean Corpuscular Volume 81 fL (79-100) Mean Corpuscular Hemoglobin 27 pg (25-35) Mean Corpuscular Hemoglobin Concent 34 g/dL (31-37) Red Cell Distribution Width 13.7 % (11.5-14.5) Platelet Count 208 x10^3/uL (140-400) Neutrophils (%) (Auto) 65 % (31-73) Lymphocytes (%) (Auto) 23 % (24-48) Monocytes (%) (Auto) 8 % (0-9) Eosinophils (%) (Auto) 3 % (0-3) Basophils (%) (Auto) 1 % (0-3) Neutrophils # (Auto) 3.2 x10^3/uL (1.8-7.7) Lymphocytes # (Auto) 1.1 x10^3/uL (1.0-4.8) Monocytes # (Auto) 0.4 x10^3/uL (0.0-1.1) Eosinophils # (Auto) 0.2 x10^3/uL (0.0-0.7) Basophils # (Auto) 0.0 x10^3/uL (0.0-0.2) Sodium Level 140 mmol/L (136-145) Potassium Level 3.5 mmol/L (3.5-5.1) Chloride Level 102 mmol/L (98-107) Carbon Dioxide Level 31 mmol/L (21-32) Anion Gap 7 (6-14) Blood Urea Nitrogen 12 mg/dL (7-20) Creatinine 0.7 mg/dL (0.6-1.0) Estimated GFR (Cockcroft-Gault) 107.2 Glucose Level 157 mg/dL (70-99) Calcium Level 9.0 mg/dL (8.5-10.1) Magnesium Level 1.9 mg/dL (1.8-2.4) Total Bilirubin 0.7 mg/dL (0.2-1.0) Direct Bilirubin 0.1 mg/dL (0.0-0.2) Aspartate Amino Transf (AST/SGOT) 20 U/L (15-37) Alanine Aminotransferase (ALT/SGPT) 42 U/L (14-59) Alkaline Phosphatase 140 U/L (46-116) Troponin I Quantitative < 0.017 ng/mL (0.000-0.055) < 0.017 ng/mL (0.000-0.055) KF-Mxf-T-Type Natriuretic Peptide 19 pg/mL (0-124) Total Protein 8.1 g/dL (6.4-8.2) Albumin 3.7 g/dL (3.4-5.0) Lipase 104 U/L (73-393) Serum Test, Qualitative Negative (NEG) SARS-CoV-2 RNA (SAVAGE) Negative (Negative) SARS-CoV-2 Antigen (Rapid) Negative (NEGATIVE) Test 12/17/20 11:40 12/18/20 03:25 Troponin I Quantitative < 0.017 ng/mL (0.000-0.055) White Blood Count 3.7 x10^3/uL (4.0-11.0) Red Blood Count 4.24 x10^6/uL (3.50-5.40) Hemoglobin 11.6 g/dL (12.0-15.5) Hematocrit 34.6 % (36.0-47.0) Mean Corpuscular Volume 82 fL (79-100) Mean Corpuscular Hemoglobin 27 pg (25-35) Mean Corpuscular Hemoglobin Concent 34 g/dL (31-37) Red Cell Distribution Width 13.7 % (11.5-14.5) Platelet Count 181 x10^3/uL (140-400) Neutrophils (%) (Auto) 51 % (31-73) Lymphocytes (%) (Auto) 32 % (24-48) Monocytes (%) (Auto) 12 % (0-9) Eosinophils (%) (Auto) 4 % (0-3) Basophils (%) (Auto) 1 % (0-3) Neutrophils # (Auto) 1.9 x10^3/uL (1.8-7.7) Lymphocytes # (Auto) 1.2 x10^3/uL (1.0-4.8) Monocytes # (Auto) 0.5 x10^3/uL (0.0-1.1) Eosinophils # (Auto) 0.2 x10^3/uL (0.0-0.7) Basophils # (Auto) 0.0 x10^3/uL (0.0-0.2) Sodium Level 142 mmol/L (136-145) Potassium Level 3.2 mmol/L (3.5-5.1) Chloride Level 106 mmol/L (98-107) Carbon Dioxide Level 29 mmol/L (21-32) Anion Gap 7 (6-14) Blood Urea Nitrogen 9 mg/dL (7-20) Creatinine 0.5 mg/dL (0.6-1.0) Estimated GFR (Cockcroft-Gault) 158.0 BUN/Creatinine Ratio 18 (6-20) Glucose Level 113 mg/dL (70-99) Calcium Level 8.3 mg/dL (8.5-10.1) Total Bilirubin 0.9 mg/dL (0.2-1.0) Aspartate Amino Transf (AST/SGOT) 18 U/L (15-37) Alanine Aminotransferase (ALT/SGPT) 29 U/L (14-59) Alkaline Phosphatase 104 U/L (46-116) Total Protein 6.7 g/dL (6.4-8.2) Albumin 3.0 g/dL (3.4-5.0) Albumin/Globulin Ratio 0.8 (1.0-1.7) Laboratory Tests Test 12/18/20 03:25 White Blood Count 3.7 x10^3/uL (4.0-11.0) Red Blood Count 4.24 x10^6/uL (3.50-5.40) Hemoglobin 11.6 g/dL (12.0-15.5) Hematocrit 34.6 % (36.0-47.0) Mean Corpuscular Volume 82 fL (79-100) Mean Corpuscular Hemoglobin 27 pg (25-35) Mean Corpuscular Hemoglobin Concent 34 g/dL (31-37) Red Cell Distribution Width 13.7 % (11.5-14.5) Platelet Count 181 x10^3/uL (140-400) Neutrophils (%) (Auto) 51 % (31-73) Lymphocytes (%) (Auto) 32 % (24-48) Monocytes (%) (Auto) 12 % (0-9) Eosinophils (%) (Auto) 4 % (0-3) Basophils (%) (Auto) 1 % (0-3) Neutrophils # (Auto) 1.9 x10^3/uL (1.8-7.7) Lymphocytes # (Auto) 1.2 x10^3/uL (1.0-4.8) Monocytes # (Auto) 0.5 x10^3/uL (0.0-1.1) Eosinophils # (Auto) 0.2 x10^3/uL (0.0-0.7) Basophils # (Auto) 0.0 x10^3/uL (0.0-0.2) Sodium Level 142 mmol/L (136-145) Potassium Level 3.2 mmol/L (3.5-5.1) Chloride Level 106 mmol/L (98-107) Carbon Dioxide Level 29 mmol/L (21-32) Anion Gap 7 (6-14) Blood Urea Nitrogen 9 mg/dL (7-20) Creatinine 0.5 mg/dL (0.6-1.0) Estimated GFR (Cockcroft-Gault) 158.0 BUN/Creatinine Ratio 18 (6-20) Glucose Level 113 mg/dL (70-99) Calcium Level 8.3 mg/dL (8.5-10.1) Total Bilirubin 0.9 mg/dL (0.2-1.0) Aspartate Amino Transf (AST/SGOT) 18 U/L (15-37) Alanine Aminotransferase (ALT/SGPT) 29 U/L (14-59) Alkaline Phosphatase 104 U/L (46-116) Total Protein 6.7 g/dL (6.4-8.2) Albumin 3.0 g/dL (3.4-5.0) Albumin/Globulin Ratio 0.8 (1.0-1.7) Problem List Problems Medical Problems: (1) Acute cholecystitis Status: Acute (2) Uncontrolled hypertension Status: Acute (3) Upper abdominal pain Status: Acute Justicifation of Admission Dx: Justifications for Admission: Justification of Admission Dx: N/A JACQUI VELASCO MD Dec 18, 2020 15:38
[2020-12-18] MEDS ORDERED: fentaNYL PF VIAL 100 MCG/2 ML VIAL IVP PRN ×2 (16:15)
[2020-12-18] MEDS ORDERED: IV RINGERS,LACTATED 1000ML 1,000 ML IV SCH (16:15)
[2020-12-18] MEDS ORDERED: PROCHLORPERAZINE 10 MG/2 ML VIAL. IVP PRN (16:15)
[2020-12-18] MEDS ORDERED: HYDROmorphone 2 MG/ML VIAL IVP PRN (16:15)
[2020-12-18] MEDS ORDERED: NEOSTIGMINE METHYLSULFATE 5 MG/5 ML SYRINGE. ONE (16:22)
[2020-12-18] MEDS ORDERED: SEVOFLURANE 61 TO 120 MINUTES. IH ONE (16:22)
[2020-12-18] MEDS ORDERED: GLYCOPYRROLATE 1 MG/5 ML VIAL. ONE (16:22)
[2020-12-18] MEDS ORDERED: ONDANSETRON PF 4 MG/2 ML VIAL. IVP PRN (17:15)
[2020-12-18] MEDS ORDERED: DEXTROSE 50% 25 GM / 50ML DISP.SYRIN. IV PRN (17:15)
[2020-12-18] MEDS ORDERED: IV NORMAL SALINE 1000ML BAG 1,000 ML IV SCH (17:15)
[2020-12-18] MEDS ORDERED: 0.9 % SODIUM CHLORIDE 10 ML DISP.SYRIN. IV PRN (17:15)
[2020-12-18] MEDS ORDERED: NALOXONE 0.4 MG/ML VIAL. IV PRN (17:15)
--- NOTE | 2020-12-18 17:20 | PDOC4 ---
OPERATIVE NOTE Date: Date: Dec 18, 2020 Pre-Op Diagnosis: Calculous cholecystitis Post-Op Diagnosis: same Procedure Performed: laparoscopic cholecystectomy with cholangiogram Surgeon: Amado Velasco Anesthesia Type: GETA plus local Blood Loss: 150 Specimans Obtained: gallbladder Findings: edematous gallbladder with adhesions, normal cholangiogram, evidence of previous umbilical hernia repair with adhesions Complications: none Operative Note: After obtaining informed consent, patient was taken to OR, induced under GETA and prepped in the usual fashion. 5 mm port placed umbilical and RUQ, 12 port placed epigastric, all under laparoscopic guidance. Abdominal cavity was explored and noted as above. Adhesions taken down sharply. Gallbladder taken off fossa in dome down fashion using cautery. Cystic artery ligated with clips. Cholangiogram was obtained via cystic duct and was normal. Cystic duct controlled with hemolok and clips. Gallbladder placed in bag, delivered and sent to pathology. Copious irrigation. No evidence of bleeding or other pathology. Ports removed without bleeding. Fascia repaired with 0 vicryl. Skin repaired with 4 0 monocryl. Dressing placed. Patient tolerated procedure well and sent to PACU in stable condition. All counts correct. Wound class is 3. JACQUI VELASCO MD Dec 18, 2020 17:20
[2020-12-18] MEDS: MORPHINE SULFATE 2 MG/ML INJ. IVP PRN ×2 (17:26→17:36)
[2020-12-18] MEDS ORDERED: MORPHINE SULFATE 2 MG/ML INJ. ONE (17:27)
--- NOTE | 2020-12-18 18:21 | NUR ---
Nurse's note: The patient underwent laparoscopic cholecystectomy. She came back to the unit at 1750, asleep easily arousable, VSS, island dressings-clean, dry and intact. The patient's spouse and daughter are present at the bedside.
[2020-12-18] MEDS: DOCUSATE SODIUM 100 MG CAPSULE. PO SCH (20:58)
[2020-12-18] MEDS: ATORVASTATIN CALCIUM 10 MG TABLET. PO SCH (20:58)
[2020-12-18] MEDS: HYDROcodone/APAP 5/325MG 1 TAB TABLET PO PRN (20:58)
[2020-12-18] MEDS: IV RINGERS,LACTATED 1000ML 1,000 ML IV SCH (23:21)
[2020-12-19 03:14] VITALS: BP 148/80
[2020-12-19] MEDS: HYDROcodone/APAP 5/325MG 1 TAB TABLET PO PRN ×2 (04:30→08:43)
[2020-12-19 07:00] VITALS: BP 144/80
[2020-12-19 07:06] LABS: BASO % 0 % (0-3); EOS % 0 % (0-3); HEMATOCRIT 36.6 % (36.0-47.0); HEMOGLOBIN 12.1 g/dL (12.0-15.5); LYMPH # 0.6 x10^3/uL (1.0-4.8); LYMPH % 9 % (24-48); MEAN CORPUSCULAR HEMOGLOBIN 27 pg (25-35); MEAN CORPUSCULAR HGB CONC 33 g/dL (31-37); MEAN CORPUSCULAR VOLUME 82 fL (79-100); MONO # 0.4 x10^3/uL (0.0-1.1); MONO % 5 % (0-9); NEUT # 6.1 x10^3/uL (1.8-7.7); NEUT % 86 % (31-73); PLATELET COUNT 214 x10^3/uL (140-400); RED BLOOD COUNT 4.48 x10^6/uL (3.50-5.40); RED CELL DISTRIBUTION WIDTH 13.6 % (11.5-14.5); WHITE BLOOD COUNT 7.1 x10^3/uL (4.0-11.0)
[2020-12-19 07:27] LABS: CALCIUM 8.6 mg/dL (8.5-10.1); CREATININE 0.7 mg/dL (0.6-1.0); GFR 107.2; POTASSIUM 3.8 mmol/L (3.5-5.1)
--- NOTE | 2020-12-19 07:44 | RAD ---
INDICATION: Reason: CHOLANGIOGRAM IN OR W/C-ARM / Spl. Instructions: / History: . Fluoro for procedu re. IMPRESSION: Fluoroscopy was utilized by the clinical service to assist with their procedure. There are 2 saved images/series. The limited saved images show spot images of the upper abdomen with contrast injection of the bile du cts with contrast seen extending into the duodenum without evidence of common bile duct obstruction. A definite common bile duct filling defect is not seen. The amount of fluoroscopy time was not saved on the image but the KVP is 90 and ma is 3. Please see the clinical service's procedure note for detail on the procedure. Electronically signed by: Chaz Espinoza MD (12/19/2020 7:41 AM) [id number]
[2020-12-19] MEDS: IV RINGERS,LACTATED 1000ML 1,000 ML IV SCH (08:37)
[2020-12-19] MEDS: DOCUSATE SODIUM 100 MG CAPSULE. PO SCH (08:40)
[2020-12-19] MEDS: LISINOPRIL 20 MG TABLET PO SCH (08:41)
[2020-12-19] MEDS: hydroCHLOROthiazide 12.5 MG CAPSULE PO SCH (08:41)
--- NOTE | 2020-12-19 08:54 | PDOC ---
PROGRESS NOTES Date of Service: DATE: 12/19/20 TIME: 08:52 Subjective Subjective feels good,eating breakfast Objective Objective Vital Signs Date Time Temp Pulse Resp B/P (MAP) Pulse Ox O2 Delivery O2 Flow Rate FiO2 12/19/20 08:43 Room Air 12/19/20 08:41 85 144/80 12/19/20 03:14 98.4 20 96 98.4 12/18/20 20:00 2.0 Intake and Output 12/19/20 07:00 Intake Total 1850 ml Output Total 550 ml Balance 1300 ml IV Total 1850 ml Output Urine Total 400 ml Estimated Blood Loss 150 ml # Voids 2 Physical Exam Abdomen: Soft, Other (mini incisions from Lap tiffany) Extremities: No clubbing, No cyanosis General: Alert, Oriented X3, Cooperative, mild distress HEENT: Atraumatic Lungs: Normal air movement Neuro: Normal speech, Sensation intact Psych/Mental Status: Mental status NL, Mood NL Skin: No rashes, No breakdown Diagnosis Problem List Problems Medical Problems: (1) Acute cholecystitis Status: Acute (2) Uncontrolled hypertension Status: Acute (3) Upper abdominal pain Status: Acute Assessment Assessment Problems Medical Problems: (1) Acute cholecystitis Status: Acute (2) Uncontrolled hypertension Status: Acute (3) Upper abdominal pain Status: Acute FINAL IMPRESSION: 1. Abdominal pain secondary to acute gallstones, possible early cholecystitis. 2. Hypertension. 3. Hyperlipidemia. PLAN: wbc normal potasium 3.2 low, replace with iv surgery Lap tiffany later today. At this time, admit to hospital, hydrate with IV fluids, n.p.o. Surgery is consulted. Scheduled for surgery tomorrow. Plan Plan of Care Problems Medical Problems: (1) Acute cholecystitis Status: Acute (2) Uncontrolled hypertension Status: Acute (3) Upper abdominal pain Status: Acute Comment Review of Relevant I have reviewed the following items abhinav (where applicable) has been applied. Labs Laboratory Tests Test 12/19/20 06:20 White Blood Count 7.1 x10^3/uL (4.0-11.0) Red Blood Count 4.48 x10^6/uL (3.50-5.40) Hemoglobin 12.1 g/dL (12.0-15.5) Hematocrit 36.6 % (36.0-47.0) Mean Corpuscular Volume 82 fL (79-100) Mean Corpuscular Hemoglobin 27 pg (25-35) Mean Corpuscular Hemoglobin Concent 33 g/dL (31-37) Red Cell Distribution Width 13.6 % (11.5-14.5) Platelet Count 214 x10^3/uL (140-400) Neutrophils (%) (Auto) 86 % (31-73) Lymphocytes (%) (Auto) 9 % (24-48) Monocytes (%) (Auto) 5 % (0-9) Eosinophils (%) (Auto) 0 % (0-3) Basophils (%) (Auto) 0 % (0-3) Neutrophils # (Auto) 6.1 x10^3/uL (1.8-7.7) Lymphocytes # (Auto) 0.6 x10^3/uL (1.0-4.8) Monocytes # (Auto) 0.4 x10^3/uL (0.0-1.1) Eosinophils # (Auto) 0.0 x10^3/uL (0.0-0.7) Basophils # (Auto) 0.0 x10^3/uL (0.0-0.2) Sodium Level 141 mmol/L (136-145) Potassium Level 3.8 mmol/L (3.5-5.1) Chloride Level 104 mmol/L (98-107) Carbon Dioxide Level 26 mmol/L (21-32) Anion Gap 11 (6-14) Blood Urea Nitrogen 4 mg/dL (7-20) Creatinine 0.7 mg/dL (0.6-1.0) Estimated GFR (Cockcroft-Gault) 107.2 Glucose Level 123 mg/dL (70-99) Calcium Level 8.6 mg/dL (8.5-10.1) Medications Current Medications Acetaminophen/ Hydrocodone Bitart (Lortab 5/325) 1 tab PRN Q4HRS PRN PO pain Last administered on 12/19/20at 08:43; Start 12/18/20 at 17:15 Bisacodyl (Dulcolax Supp) 10 mg STK-MED ONCE .ROUTE Last administered on 12/18/20at 16:54; Start 12/18/20 at 14:52; Stop 12/18/20 at 14:52; Status DC Bupivacaine HCl/ Epinephrine Bitart (Sensorcain-Epi 0.5% Kit) 30 ml STK-MED ONCE .ROUTE Last administered on 12/18/20at 16:03; Start 12/18/20 at 14:51; Stop 12/18/20 at 14:51; Status DC Cefazolin Sodium/ Dextrose 50 ml @ 100 mls/hr 1X ONCE IV Last administered on 12/18/20at 15:50; Start 12/18/20 at 15:45; Stop 12/18/20 at 16:16; Status DC Cefazolin Sodium/ Dextrose 50 ml @ As Directed STK-MED ONCE IV ; Start 12/18/20 at 15:35; Stop 12/18/20 at 15:35; Status DC Cellulose (Surgicel Hemostat 2x14) 1 each STK-MED ONCE .ROUTE ; Start 12/18/20 at 14:51; Stop 12/18/20 at 14:51; Status DC Dextrose (Dextrose 50%-Water Syringe) 12.5 gm PRN Q15MIN PRN IV SEE COMMENTS; Start 12/18/20 at 17:15 Docusate Sodium (Colace) 100 mg BID PO Last administered on 12/18/20at 20:58; Start 12/18/20 at 21:00 Fentanyl Citrate (Fentanyl 2ml Vial) 25 mcg PRN Q5MIN PRN IVP MILD PAIN 1-3; Start 12/18/20 at 16:15; Stop 12/18/20 at 20:00; Status DC Fentanyl Citrate (Fentanyl 2ml Vial) 50 mcg PRN Q5MIN PRN IVP MODERATE PAIN 4- 6; Start 12/18/20 at 16:15; Stop 12/18/20 at 20:00; Status DC Fentanyl Citrate (Fentanyl 5ml Vial) 250 mcg STK-MED ONCE .ROUTE ; Start 12/18/20 at 13:34; Stop 12/18/20 at 13:34; Status DC Glycopyrrolate (Robinul) 1 mg STK-MED ONCE .ROUTE ; Start 12/18/20 at 16:22; Stop 12/18/20 at 16:22; Status DC Heparin Sodium (Porcine) 1000 unit/Sodium Chloride 1,001 ml @ 1,001 mls/hr 1X ONCE IRR ; Start 12/18/20 at 13:00; Stop 12/18/20 at 13:59; Status DC Hydromorphone HCl (Dilaudid) 0.5 mg PRN Q10MIN PRN IVP SEVERE PAIN 7-10, 2nd CHOICE; Start 12/18/20 at 16:15; Stop 12/18/20 at 20:00; Status DC Iohexol (Omnipaque 300 Mg/ml) 50 ml STK-MED ONCE .ROUTE Last administered on 12/18/20at 16:03; Start 12/18/20 at 14:51; Stop 12/18/20 at 14:52; Status DC Lidocaine HCl (Lidocaine Pf 2% Vial) 5 ml STK-MED ONCE .ROUTE ; Start 12/18/20 at 14:49; Stop 12/18/20 at 14:49; Status DC Morphine Sulfate (Morphine Sulfate) 1 mg PRN Q10MIN PRN IVP SEVERE PAIN 7-10 Last administered on 12/18/20at 17:36; Start 12/18/20 at 16:15; Stop 12/18/20 at 20:00; Status DC Morphine Sulfate (Morphine Sulfate) 2 mg STK-MED ONCE .ROUTE ; Start 12/18/20 at 17:27; Stop 12/18/20 at 17:27; Status DC Naloxone HCl (Narcan) 0.4 mg PRN Q2MIN PRN IV SEE INSTRUCTIONS; Start 12/18/20 at 17:15 Neostigmine [place] (Neostigmine Methylsulfate) 5 mg STK-MED ONCE .ROUTE ; Start 12/18/20 at 16:22; Stop 12/18/20 at 16:23; Status DC Ondansetron HCl (Zofran) 4 mg PRN Q6HRS PRN IVP NAUESA, 1ST CHOICE; Start 12/18/20 at 17:15 Potassium Chloride/Water 100 ml @ 50 mls/hr 1X ONCE IV Last administered on 12/18/20at 08:55; Start 12/18/20 at 09:00; Stop 12/18/20 at 10:59; Status DC Prochlorperazine Edisylate (Compazine) 5 mg PACU PRN PRN IVP NAUSEA, MRX1; Start 12/18/20 at 16:15; Stop 12/18/20 at 20:00; Status DC Propofol (Diprivan) 200 mg STK-MED ONCE IV ; Start 12/18/20 at 14:49; Stop 12/18/20 at 14:49; Status DC Ringer's Solution 1,000 ml @ 30 mls/hr Q24H IV Last administered on 12/18/20at 15:45; Start 12/18/20 at 16:15; Stop 12/19/20 at 04:14; Status DC Ringer's Solution 1,000 ml @ 100 mls/hr Q10H IV Last administered on 12/18/20at 23:21; Start 12/18/20 at 17:15 Rocuronium [place] (Zemuron) 50 mg STK-MED ONCE .ROUTE ; Start 12/18/20 at 13:32; Stop 12/18/20 at 13:32; Status DC Rocuronium [place] (Zemuron) 50 mg STK-MED ONCE .ROUTE ; Start 12/18/20 at 14:48; Stop 12/18/20 at 14:48; Status DC Sevoflurane (Ultane) 60 ml STK-MED ONCE IH ; Start 12/18/20 at 16:22; Stop 12/18/20 at 16:22; Status DC Sodium Chloride 1,000 ml @ 25 mls/hr Q24H IV ; Start 12/18/20 at 17:15 Sodium Chloride (Normal Saline Flush) 3 ml QSHIFT PRN IV AFTER MEDS AND BLOOD DRAWS; Start 12/18/20 at 17:15 Vitals/I & O Vital Sign - Last 24 Hours 12/18/20 12/18/20 12/18/20 12/18/20 08:53 08:54 11:00 14:48 Temp 98.4 98.6 98.4 98.6 Pulse 94 94 79 97 Resp 18 20 B/P (MAP) 142/92 142/92 144/77 (99) 166/88 Pulse Ox 98 99 O2 Delivery Room Air Room Air 12/18/20 12/18/20 12/18/20 12/18/20 17:02 17:02 17:15 17:26 Temp 98.5 98.5 Pulse 82 85 Resp 16 16 16 B/P (MAP) 154/87 139/83 Pulse Ox 100 98 98 O2 Delivery Mask Simple Mask Simple Mask Simple Mask O2 Flow Rate 6 6 6 6.0 12/18/20 12/18/20 12/18/20 12/18/20 17:30 17:36 17:39 17:44 Pulse 90 90 Resp 16 16 16 B/P (MAP) 131/74 133/76 Pulse Ox 100 100 97 O2 Delivery Simple Mask Simple Mask Room Air Nasal Cannula O2 Flow Rate 6 6.0 2 12/18/20 12/18/20 12/18/20 12/18/20 17:51 18:00 18:06 18:10 Temp 99.0 99.0 Pulse 89 94 Resp 18 18 18 B/P (MAP) 129/81 (97) 119/69 (86) Pulse Ox 92 92 97 92 O2 Delivery Nasal Cannula Room Air Room Air O2 Flow Rate 2.0 2.0 2.0 12/18/20 12/18/20 12/18/20 12/18/20 18:21 18:36 19:00 19:06 Temp 98.7 98.7 Pulse 89 88 89 101 Resp 20 B/P (MAP) 114/71 (85) 121/70 (87) 118/71 (87) 114/66 (82) Pulse Ox 93 95 98 94 O2 Delivery Nasal Cannula Nasal Cannula O2 Flow Rate 2.0 2.0 12/18/20 12/18/20 12/18/20 12/18/20 20:00 20:58 21:28 23:04 Temp 98.8 98.8 Pulse 94 Resp 18 B/P (MAP) 116/64 (81) Pulse Ox 89 O2 Delivery Room Air Room Air Room Air Room Air O2 Flow Rate 2.0 12/19/20 12/19/20 12/19/20 12/19/20 03:14 04:30 07:30 08:40 Temp 98.4 98.4 Pulse 79 85 Resp 20 B/P (MAP) 148/80 (102) 144/80 Pulse Ox 96 O2 Delivery Room Air Room Air Room Air 12/19/20 12/19/20 08:41 08:43 Pulse 85 B/P (MAP) 144/80 O2 Delivery Room Air Intake and Output 12/18/20 12/18/20 12/19/20 15:00 23:00 07:00 Intake Total 1850 ml Output Total 550 ml Balance 1300 ml Justifications for Admission Other Justification OSWALDO SCHMITT MD Dec 19, 2020 08:54
[2020-12-19] MEDS ORDERED: HYDR-2761 PO ×2 (09:00→09:11)
[2020-12-19 11:00] VITALS: BP 121/75
--- NOTE | 2020-12-19 11:36 | NUR ---
SW following. Discussed with RN, pt from home with family, room air, regular diet, COVID-19 negative. Discharge order for home with self care. RN advised no SW needs.
--- NOTE | 2020-12-19 12:37 | PDOC ---
SURGICAL PROGRESS NOTE DATE: 12/19/20 TIME: 12:36 Subjective doing well postoperatively tolerating diet Vital Signs Vital Signs Date Time Temp Pulse Resp B/P (MAP) Pulse Ox O2 Delivery O2 Flow Rate FiO2 12/19/20 11:00 98.6 94 20 121/75 (90) 90 Room Air 98.6 12/18/20 20:00 2.0 I&O Intake and Output 12/19/20 07:00 Intake Total 1850 ml Output Total 550 ml Balance 1300 ml IV Total 1850 ml Output Urine Total 400 ml Estimated Blood Loss 150 ml # Voids 2 General: Alert, Oriented X3, Cooperative Abdomen: Soft, Other (lap dressings dry) Labs Laboratory Tests Test 12/18/20 03:25 12/19/20 06:20 White Blood Count 3.7 x10^3/uL (4.0-11.0) 7.1 x10^3/uL (4.0-11.0) Red Blood Count 4.24 x10^6/uL (3.50-5.40) 4.48 x10^6/uL (3.50-5.40) Hemoglobin 11.6 g/dL (12.0-15.5) 12.1 g/dL (12.0-15.5) Hematocrit 34.6 % (36.0-47.0) 36.6 % (36.0-47.0) Mean Corpuscular Volume 82 fL (79-100) 82 fL (79-100) Mean Corpuscular Hemoglobin 27 pg (25-35) 27 pg (25-35) Mean Corpuscular Hemoglobin Concent 34 g/dL (31-37) 33 g/dL (31-37) Red Cell Distribution Width 13.7 % (11.5-14.5) 13.6 % (11.5-14.5) Platelet Count 181 x10^3/uL (140-400) 214 x10^3/uL (140-400) Neutrophils (%) (Auto) 51 % (31-73) 86 % (31-73) Lymphocytes (%) (Auto) 32 % (24-48) 9 % (24-48) Monocytes (%) (Auto) 12 % (0-9) 5 % (0-9) Eosinophils (%) (Auto) 4 % (0-3) 0 % (0-3) Basophils (%) (Auto) 1 % (0-3) 0 % (0-3) Neutrophils # (Auto) 1.9 x10^3/uL (1.8-7.7) 6.1 x10^3/uL (1.8-7.7) Lymphocytes # (Auto) 1.2 x10^3/uL (1.0-4.8) 0.6 x10^3/uL (1.0-4.8) Monocytes # (Auto) 0.5 x10^3/uL (0.0-1.1) 0.4 x10^3/uL (0.0-1.1) Eosinophils # (Auto) 0.2 x10^3/uL (0.0-0.7) 0.0 x10^3/uL (0.0-0.7) Basophils # (Auto) 0.0 x10^3/uL (0.0-0.2) 0.0 x10^3/uL (0.0-0.2) Sodium Level 142 mmol/L (136-145) 141 mmol/L (136-145) Potassium Level 3.2 mmol/L (3.5-5.1) 3.8 mmol/L (3.5-5.1) Chloride Level 106 mmol/L (98-107) 104 mmol/L (98-107) Carbon Dioxide Level 29 mmol/L (21-32) 26 mmol/L (21-32) Anion Gap 7 (6-14) 11 (6-14) Blood Urea Nitrogen 9 mg/dL (7-20) 4 mg/dL (7-20) Creatinine 0.5 mg/dL (0.6-1.0) 0.7 mg/dL (0.6-1.0) Estimated GFR (Cockcroft-Gault) 158.0 107.2 BUN/Creatinine Ratio 18 (6-20) Glucose Level 113 mg/dL (70-99) 123 mg/dL (70-99) Calcium Level 8.3 mg/dL (8.5-10.1) 8.6 mg/dL (8.5-10.1) Total Bilirubin 0.9 mg/dL (0.2-1.0) Aspartate Amino Transf (AST/SGOT) 18 U/L (15-37) Alanine Aminotransferase (ALT/SGPT) 29 U/L (14-59) Alkaline Phosphatase 104 U/L (46-116) Total Protein 6.7 g/dL (6.4-8.2) Albumin 3.0 g/dL (3.4-5.0) Albumin/Globulin Ratio 0.8 (1.0-1.7) Laboratory Tests Test 12/19/20 06:20 White Blood Count 7.1 x10^3/uL (4.0-11.0) Red Blood Count 4.48 x10^6/uL (3.50-5.40) Hemoglobin 12.1 g/dL (12.0-15.5) Hematocrit 36.6 % (36.0-47.0) Mean Corpuscular Volume 82 fL (79-100) Mean Corpuscular Hemoglobin 27 pg (25-35) Mean Corpuscular Hemoglobin Concent 33 g/dL (31-37) Red Cell Distribution Width 13.6 % (11.5-14.5) Platelet Count 214 x10^3/uL (140-400) Neutrophils (%) (Auto) 86 % (31-73) Lymphocytes (%) (Auto) 9 % (24-48) Monocytes (%) (Auto) 5 % (0-9) Eosinophils (%) (Auto) 0 % (0-3) Basophils (%) (Auto) 0 % (0-3) Neutrophils # (Auto) 6.1 x10^3/uL (1.8-7.7) Lymphocytes # (Auto) 0.6 x10^3/uL (1.0-4.8) Monocytes # (Auto) 0.4 x10^3/uL (0.0-1.1) Eosinophils # (Auto) 0.0 x10^3/uL (0.0-0.7) Basophils # (Auto) 0.0 x10^3/uL (0.0-0.2) Sodium Level 141 mmol/L (136-145) Potassium Level 3.8 mmol/L (3.5-5.1) Chloride Level 104 mmol/L (98-107) Carbon Dioxide Level 26 mmol/L (21-32) Anion Gap 11 (6-14) Blood Urea Nitrogen 4 mg/dL (7-20) Creatinine 0.7 mg/dL (0.6-1.0) Estimated GFR (Cockcroft-Gault) 107.2 Glucose Level 123 mg/dL (70-99) Calcium Level 8.6 mg/dL (8.5-10.1) Problem List Problems Medical Problems: (1) Acute cholecystitis Status: Acute (2) Uncontrolled hypertension Status: Acute (3) Upper abdominal pain Status: Acute Assessment/Plan s/p tiffany ok to nd home Justicifation of Admission Dx: Justifications for Admission: Justification of Admission Dx: N/A KELLIE ELLER APRN Dec 19, 2020 12:37
--- NOTE | 2020-12-19 13:30 | NUR ---
Discharge Note: Patient was discharged home with self care. Patients spouse at the bedside at the time of discharge education. Patients IV's were discontinued per AARON without any complication. Patient received discharge summary/instructions, follow-ups and educational material. Patients new prescriptions were sent to patients preferred pharmacy per Dr. Conteh. RN unable to finalized home meds in discharged, spoke to Dr. Conteh and stated to cancel new meds since he had already sent it. Still RN unable to cancel, and unable to finalized meds. Patient did not have any further questions or concerns. Patient was taken down to the main entrance via wheelchair with all personal belongings accompanied by AARON Sanches, where her spouse was waiting for her to take her home.
--- NOTE | 2020-12-20 10:47 | PDOC ---
Provider Note Date of Service: DATE: 12/20/20 TIME: 10:47 Provider Note Discharge summary dictated,#[id number]. Justifications for Admission Other Justification OSWALDO SCHMITT MD Dec 20, 2020 10:47
--- NOTE | 2020-12-20 11:30 | DS ---
DATE OF DISCHARGE: 12/19/2020 REASON FOR ADMISSION TO THE HOSPITAL: Abdominal pain secondary to symptomatic gallstones. CONSULTATIONS: Dr. Tom. PROCEDURES DONE: Laparoscopic cholecystectomy with cholangiogram. COMPLICATIONS NOTED: None. HOSPITAL COURSE: The patient is a 50-year-old female with a history of hypertension, obesity, came in with right upper abdominal pain, nausea, vomiting, was found to have gallstones with inflammation around the gallbladder area. The patient was seen by Surgery, taken to surgery, had a laparoscopic cholecystectomy with intraoperative cholangiogram. The patient did well. Diet was advanced and the patient had edematous gallbladder with adhesions removed, normal cholangiogram, evidence of previous umbilical hernia repair with adhesions. The patient did well. She was discharged home the next day, tolerating diet well. FINAL DIAGNOSES: 1. Gallbladder attacks secondary to gallstones. The patient underwent laparoscopic cholecystectomy. 2. Hypertension. DISPOSITION: Home. DISCHARGE MEDICATIONS: See MRAD for discharge medications. VENKAT DR: Kem TID: [id number]
--- NOTE | 2020-12-22 15:12 | PATHOLOGY ---
[facility] Accession Number: [id number] . 01 Material submitted: . gallbladder - GALLBLADDER AND CONTENTS . 01 Clinical history: . ACUTE CHOLECYSTITIS LAP PAMELA WITH GRAMS ABDOMINAL PAIN X'S 2 HRS . 02 Diagnosis: Gallbladder, laparoscopic cholecystectomy: - Cholelithiasis. - Cholesterolosis, focal. - Chronic and focal acute cholecystitis with increased eosinophils. ([facility]; 12/22/2020) [facility] 12/22/2020 0917 Local . 02 Comment: There is no evidence of malignancy. ([facility]; 12/22/2020) . 02 Electronically signed: . Quincy Campbell MD, Pathologist NPI- [id number] . 01 Gross description: . Fixative: Formalin Labeled: Gallbladder and contents Specimen received: Intact gallbladder Dimensions: 9.5 x 3.0 x 2.8 cm Serosa: Light gaytan-toribio to dark gaytan-toribio Lymph node: None identified Mucosa: Light agytan-yellow and focally hemorrhagic with yellow stippling Average wall thickness: 0.2 cm Calculi: Present, dark yellow and granular embedded within dark green highly viscous bile Abnormalities: None identified . 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 ([facility]; 12/19/2020) [facility] 12/19/2020 1624 Local . 02 Pathologist provided ICD-10: K80.10, K82.4 . 02 CPT . 047317 Specimen Comment: A courtesy copy of this report has been sent to [phone] Specimen Comment: [id number] Specimen Comment: Report sent to / DR SCHMITT Performed at: [address], [place], [place] [id number] MD Cameron Hathaway MD Phone: [phone] Performed at: [address] [id number] MD Quincy Campbell MD Phone: [phone]
== END 2020-12-19 13:30 | disposition home or self-care (01) | DRG 419 ==
LOC: ER 03:22 → 5 SOUTH 08:00
PROVIDERS: ADMIT Internal Medicine; ATTEND Internal Medicine
PROC: BF101ZZ Fluoroscopy of Bile Ducts using Low Osmolar Contrast (ICD-10-PCS; 2020-12-18)
PROC: 0FT44ZZ Resection of Gallbladder, Percutaneous Endoscopic Approach (ICD-10-PCS; principal; 2020-12-18 16:45)
DX: K80.00 Calculus of gallbladder with acute cholecystitis without obstruction (principal); Z20.822 Contact with and (suspected) exposure to COVID-19; E78.5 Hyperlipidemia, unspecified; I10 Essential (primary) hypertension; K82.8 Other specified diseases of gallbladder; Z90.710 Acquired absence of both cervix and uterus; E66.9 Obesity, unspecified; Z68.33 Body mass index [BMI] 33.0-33.9, adult
CPT/HCPCS: 36415; 71045; 71275; 74174; 74300; 76705; 80048; 80053; 80076; 80307; 81001; 83690; 83735; 83880; 84484; 84703; 85025; 87426; 93005; 96365; 96375; A4213; A4223; A4314; A4930; A6219; C1887; J0690; J0696; J1170; J2270; J2704; J2710; J3010; J3480; J3490; J7030; J7120; Q9967; U0003; U0005; 99285-25; G0378